=== PATIENT | female | born 1935 | race Caucasian/White ===

== ENCOUNTER 2018-04-13 16:11 | Emergency (ER) | payer OTHER ==
[~2018-04-13] VITALS: Ht 157.5 cm; Wt 54.9 kg
[~2018-04-13 16:11] MED LIST: ACET-2858 PO; ATI.5 PO; ATOR40TA PO; DONE10TA10 PO; DORZ10SO23 OP; LISI10TA11 PO; OMEP20TC12 PO; RIVA15TA1 PO; TIM.5OS OP
[2018-04-13 16:19] VITALS: BP 157/108
--- NOTE | 2018-04-13 16:25 | NUR ---
PT AMBULATED TO ER BED 02
--- NOTE | 2018-04-13 16:39 | NUR ---
82/F bib daughter with complaints of cough and congestion x1 week. Pt states she has had a productive cough x1 week with white, yellowish phlegm production. Pt also c/o feeling short of breath. O2 sat 98% on room air. Lungs clear bilaterally x5 lobes. Respirations even and unlabored. Chest rises and falls symmetrically. Pt has a defibrilator to left upper chest. Hx a.fib, breast ca (remission), HTN. Pt placed on gambling monitor, a.fib noted, pulse oximetry and blood pressure monitoring. VSS. Pt also reports feeling dizziness last night upon waking up during the night. Denies syncope. AOX4, clear speech. Family at bedside. All needs met at this time. Will continue to monitor.
--- NOTE | 2018-04-13 16:47 | NUR ---
X-Ray at bedside.
--- NOTE | 2018-04-13 17:26 | NUR ---
Patient being evaluated by physician at bedside.
--- NOTE | 2018-04-13 17:45 | NUR ---
Patient appears to be resting comfortably in bed. Vital Signs within normal limits. Respirations even and unlabored. Pt states "I'm ready to go."
[2018-04-13 18:34] VITALS: BP 162/99
--- NOTE | 2018-04-13 18:34 | NUR ---
Patient discharged with v/s stable. Written and verbal after care instructions given and explained. Patient alert, oriented and verbalized understanding of instructions. Ambulatory with steady gait. All questions addressed prior to discharge. ID band removed. Patient advised to follow up with PMD. Rx of Prednisone 20mg, and Zithromax Z-JOHNNY 250mg given. Patient educated on indication of medication including possible reaction and side effects. Opportunity to ask questions provided and answered.
== END 2018-04-13 18:34 | disposition home or self-care (01) ==
LOC: MED 16:11
DX: J42 Unspecified chronic bronchitis (principal); I48.91 Unspecified atrial fibrillation; I10 Essential (primary) hypertension; Z95.0 Presence of cardiac pacemaker; Z85.3 Personal history of malignant neoplasm of breast; Z79.899 Other long term (current) drug therapy
CPT/HCPCS: 71045; 93005; 99284

== ENCOUNTER 2018-06-12 11:48 | Inpatient (IN) | payer OTHER ==
[~2018-06-12] VITALS: Ht 152.4 cm; Wt 54.4 kg
--- NOTE | 2018-06-12 12:10 | NUR ---
ARRIVED ON THE UNIT IN A WHEELCHAIR, ACCOMPANIED BY DAUGHTER MIMI. PT IS ALERT AND ORIENTED. PT ABLE TO AMBULATE WITH ASSIST D/T GENERALIZED WEAKNESS. SKIN INTACT. NO IV ACCESS. DAUGHTER STATES, PT HAS ABD PAIN, NAUSEA AND VOMITING, LOSS OF APPETITE, HIGH BP. ROOM AIR. WILL CONTINUE TO ASSESS.
--- NOTE | 2018-06-12 12:20 | NUR ---
MRSA SCREENING DONE. FALL PROTOCOL IN PLACE. V/S WITHIN NORMAL LIMITS, EXCEPT BP STILL HIGH 171/76. PT IS RESTING COMFORTABLY. DAUGHTER AT BEDSIDE. WILL CONTINUE TO MONITOR PT.
[2018-06-12 12:59] VITALS: BP 171/76
[2018-06-12] MEDS ORDERED: LORazepam 0.5 MG TAB PO PRN (14:00)
[2018-06-12] MEDS ORDERED: MORPHINE SULFATE 2 MG/ML SYR IVP PRN (14:00)
[2018-06-12 14:56] LABS: BASOPHILS % (AUTO) 0.4 % (0.0-2.0); EOSINOPHILS % (AUTO) 0.1 % (0.0-4.0); HEMATOCRIT 42.6 % (36-48); LYMPHOCYTES # (AUTO) 1.3 K/uL (2.5-16.5); MEAN CORPUSCULAR HEMOGLOBIN 28 pg (27-31); MEAN CORPUSCULAR HGB CONC 33 g/dL (33-37); MEAN CORPUSCULAR VOLUME 83.7 fL (80-94); MONOCYTES # (AUTO) 0.5 K/uL (0.8-1.0); MONOCYTES % (AUTO) 7.3 % (1.7-9.3); NEUTROPHILS # (AUTO) 5.1 K/uL (1.8-7.7); NEUTROPHILS % (AUTO) 73.2 % (42.2-75.2); PLATELET COUNT (AUTO) 210 K/uL (140-450); RED BLOOD CELL COUNT(AUTO) 5.09 MIL/uL (4.20-5.40); RED CELL DISTRIBUTION WIDTH 15.5 % (11.6-13.7)
[2018-06-12] MEDS ORDERED: ONDANSETRON 4 MG/2 ML VIAL IVP PRN (15:00)
--- NOTE | 2018-06-12 15:03 | NUR ---
DR. Tosha ADAMS WAS HERE TO CONSULT ON PT. ORDERED EGD. COURTNEY, OR NURSE IS HERE. COURTNEY GOT CONSENT FOR PROCEDURE. STARTED AN IV ACCESS ON L HAND 22G. PT WHEELED OUT TO THE O/R.
[2018-06-12] MEDS ORDERED: MIDAZOLAM 2 MG/2 ML VIAL ONE (15:20)
[2018-06-12] MEDS ORDERED: fentaNYL 0.05 MG/ML VIAL ONE (15:20)
[2018-06-12] MEDS ORDERED: diphenhydrAMINE 50 MG/ML VIAL ONE (15:21)
[2018-06-12] MEDS: MIDAZOLAM 2 MG/2 ML VIAL IVP ONE ×2 (15:29→16:08)
[2018-06-12] MEDS: fentaNYL 0.05 MG/ML VIAL IVP ONE ×2 (15:30→16:08)
[2018-06-12] MEDS: LACTULOSE 20 GM/30 ML UDC PO SCH ×2 (15:36→17:35)
[2018-06-12 15:41] LABS: ALBUMIN 3.7 g/dL (3.4-5.0); AMYLASE 38 U/L (25-115); ANION GAP 12.8 (8-16); ASPARTATE AMINOTRANSFERASE 19 U/L (15-37); CARBON DIOXIDE 28.6 mmol/L (21-32); CHLORIDE 104 mmol/L (98-107); CREATININE 1.1 mg/dL (0.6-1.3); GLUCOSE 105 mg/dL (74-106); LIPASE 73 U/L (73-393); POTASSIUM 3.4 mmol/L (3.5-5.1); SODIUM SERUM 142 mmol/L (136-145); TOTAL BILIRUBIN 0.9 mg/dL (0.0-1.0); UREA NITROGEN, BLOOD 17 mg/dL (7-18)
--- NOTE | 2018-06-12 15:55 | NUR ---
PT RETURNED FROM THE EGD. COURTNEY GAVE REPORT. PT'S DX: HIATAL HERNIA, GERD, GASTRITIS. PT TOLERATED WELL. DR ADAMS PUT IN ORDERS FOR COLONOSCOPY FOR TOMORROW. PT WILL BE NPO AFTER MIDNIGHT. V/S WITHIN NORMAL LIMITS. WILL START BOWEL PREP.
[2018-06-12 16:00] VITALS: BP 139/76
[2018-06-12] MEDS ORDERED: MAGNESIUM CITRATE 300 ML BTL PO SCH (16:00)
[2018-06-12] MEDS ORDERED: LACTULOSE 20 GM/30 ML UDC ONE (16:10)
--- NOTE | 2018-06-12 16:33 | NUR ---
U/S IS HERE TO DO THE ABD COMPLETE.
[2018-06-12] MEDS: POTASSIUM CHL 20 MEQ/NACL 0.9% 1,000 ML IV SCH (17:35)
[2018-06-12] MEDS: SENNA 8.6 MG TAB PO SCH (17:36)
[2018-06-12] MEDS: METOCLOPRAMIDE 10 MG/2 ML INJ VIAL IVP SCH (17:36)
[2018-06-12] MEDS: POLYETHYLENE GLYCOL 17 GM/PKT PO SCH ×2 (17:36→21:06)
--- NOTE | 2018-06-12 17:40 | NUR ---
STARTED BOWEL PREP. PT ON THE BEDSIDE COMMODE. DAUGHTER AT BEDSIDE.
--- NOTE | 2018-06-12 19:20 | NUR ---
ENDORSED PT TO THE ORACLE WEBCENTER CONSULTANT NURSE AT BEDSIDE FOR CONTINUITY OF CARE. PT IS IN STABLE CONDITION.
[2018-06-12 20:00] VITALS: BP 154/76
--- NOTE | 2018-06-12 20:00 | NUR ---
SEEN PT APPEARS ASLEEP BUT AROUSABLE. DAUGHTER AT BEDSIDE. INITIAL ASSESSMENT DONE. VITAL SIGNS CHECKED. PT DENIES ANY PAIN OR DISCOMFORT. SAFETY ENSURED. DAUGHTER WAS ASKING FOR LORAZEPAM. WILL MEDICATE ORDERED.
--- NOTE | 2018-06-12 20:40 | NUR ---
SEEN PT ON THE BEDSIDE COMMODE. DAUGHTER HELPING PT.
[2018-06-12] MEDS ORDERED: TIMOLOL OP 0.5% 5 ML BTL OP SCH (21:00)
[2018-06-12] MEDS: ATORVASTATIN 20 MG TAB PO SCH (21:04)
[2018-06-12] MEDS: LORazepam 0.5 MG TAB PO PRN (21:05)
[2018-06-12] MEDS: TIMOLOL OP 0.5% 5 ML BTL BOTH EYES SCH (21:06)
--- NOTE | 2018-06-12 21:06 | NUR ---
SEEN PT BACK IN BED. MEDICATIONS GIVEN ORDERED. TEACHINGS PROVIDED. SAFETY ENSURED. WILL CLOSELY MONITOR FOR SAFETY. DAUGHTER LEFT.
[2018-06-13] MEDS: METOCLOPRAMIDE 10 MG/2 ML INJ VIAL IVP SCH ×4 (01:10→17:35)
--- NOTE | 2018-06-13 04:10 | NUR ---
SEEN PT ASLEEP BUT AROUSABLE. VITAL SIGNS CHECKED. PT DENIES ANY DISCOMFORT. PT HAD BM ON THE BED. PERICARE RENDERED. PT KEPT COMFORTABLE. SEQUENTIAL DEVICE APPLIED PER PROTOCOL.
[2018-06-13 04:15] VITALS: BP 160/83
[2018-06-13] MEDS: POTASSIUM CHL 20 MEQ/NACL 0.9% 1,000 ML IV SCH ×2 (06:00→18:35)
--- NOTE | 2018-06-13 07:15 | NUR ---
RECEIVED BEDSIDE REPORT FROM IT COMMUNICATIONS MANAGER NURSE. PATIENT IS SLEEPING BUT EASILY AROUSABLE. SHE IS ABLE TO AMBULATE W ASSIST. BEDSIDE COMMODE AT BEDSIDE. SKIN IS INTACT. IV ON L HAND 22G INFUSING K20MEQ/NS AT 75ML/HR. IV IS CLEAN, DRY AND INTACT. BM IS CLEAR, SHE HAD MULTIPLE BMS PER IT COMMUNICATIONS MANAGER. BED IN LOW POSITION. CALL LIGHT WITHIN REACH. FALL RISK PROTOCOL IN PLACE. NO B/P CUFF ON R SIDE IN PLACE. WILL CONTINUE TO MONITOR
[2018-06-13 08:00] VITALS: BP 182/91
[2018-06-13] MEDS: SENNA 8.6 MG TAB PO SCH ×3 (09:00→17:00)
[2018-06-13] MEDS ORDERED: CLINICAL MONITORING MC SCH (09:00)
[2018-06-13] MEDS: POLYETHYLENE GLYCOL 17 GM/PKT PO SCH ×4 (09:00→20:32)
[2018-06-13] MEDS ORDERED: RIVAROXABAN 15 MG TAB PO SCH (09:00)
[2018-06-13] MEDS: DONEPEZIL 10 MG TAB PO SCH (09:33)
[2018-06-13] MEDS: PANTOPRAZOLE 40 MG INJ VIAL IVP SCH (09:33)
[2018-06-13] MEDS: LISINOPRIL 10 MG TAB PO SCH (09:33)
--- NOTE | 2018-06-13 09:43 | NUR ---
ADMINISTERED MEDS. PATIENT TOLERATED WELL. PATIENT REFUSED SENNA AND MIRALAX. SHE SAID HER STOOL IS CLEAR AND SHES HAD TOO MUCH. BED IN LOW POSITION CALL LIGHT WITHIN REACH. TOLD PATIENT ITS IMPORTANT TO CLEAR BOWEL FOR COLONOSCOPY
--- NOTE | 2018-06-13 10:42 | NUR ---
PATIENT HAS BEEN SCREENED AND CATEGORIZED HIGH NUTRITION RISK. PATIENT WILL BE SEEN WITHIN 1-2 DAYS OF ADMISSION. 06/13/18 06/14/[address]
[2018-06-13 12:00] VITALS: BP 199/83
--- NOTE | 2018-06-13 12:00 | NUR ---
B/P IS UP. DR JAMES ORDERED B/P MED FOR PATIENT. WILL ADMINISTER MEDS.
[2018-06-13] MEDS: cloNIDine 0.1 MG TAB PO SCH ×2 (12:21→17:00)
--- NOTE | 2018-06-13 12:30 | NUR ---
DR ADAMS TO SEE THE PATIENT. PATIENT IN NO SIGNS OF DISTRESS. WILL CONTINUE TO MONITOR THE PATIENT.
--- NOTE | 2018-06-13 13:07 | NUR ---
FAMILY AT BEDSIDE. PATIENT IN NO DISTRESS AT THIS TIME. WILL CONTINUE TO MONITOR THE PATIENT. BED IN LOW POSITION. CALL LIGHT WITHIN REACH
--- NOTE | 2018-06-13 15:00 | NUR ---
PATIENT IS SLEEPING. NO SIGNS OF DISTRESS ON ROOM AIR. BED IN LOW POSITION. CALL LIGHT WITHIN REACH. WILL CONTINUE TO MONITOR THE PATIENT
[2018-06-13 16:00] VITALS: BP 149/66
--- NOTE | 2018-06-13 17:00 | NUR ---
PATIENTS COLONOSCOPY IS RESCHEDULED FOR TOMORROW MORNING. OR TEMP IS TOO HIGH TO DO ANY PROCEDURES. CLEAR LIQ DIET GIVEN, NPO AFTER MIDNIGHT. PATIENT AND FAMILY VERBALIZED UNDERSTANDING.
--- NOTE | 2018-06-13 18:49 | NUR ---
ADMINISTERED NEW IVF. PATIENT TOLERATING WELL. IV IS CLEAN, DRY AND INTACT. WILL CONTINUE TO MONITOR THE PATIENT,
--- NOTE | 2018-06-13 19:20 | NUR ---
GAVE BEDSIDE REPORT TO BLAST FURNACE SUPERVISOR NURSE. PATIENT IS ENDORSED IN STABLE CONDITION.
--- NOTE | 2018-06-13 19:21 | NUR ---
RECEIVED BEDSIDE REPORT FROM DISTRICT DIRECTOR NURSE ANALIA-RN. PT IS RESTING IN BED WITH DAUGHTER AT BEDSIDE. AOX4, ON ROOM AIR, IV ON L HAND 22G INFUSING K20MEQ/NS AT 75ML/HR. IV IS CLEAN, DRY AND INTACT. SHE IS ABLE TO AMBULATE W ASSIST. BEDSIDE COMMODE AT BEDSIDE. SKIN IS INTACT. BM IS CLEAR. DISCUSSED PLAN OF CARE. PT AND PT DAUGHTER VERBALIZED UNDERSTANDING. NO S/S OF RESPIRATORY DISTRESS OR DISCOMFORT NOTED AT THIS TIME. BED IN LOWEST POSITION, BED BREAKS ON, BOTH SIDE RAILS UP, BED ALARM ON. BEDSIDE TABLE AND CALL LIGHT ARE WITHIN REACH. FALL RISK PROTOCOL IN PLACE. NO B/P CUFF ON RIGHT SIDE IN PLACE. WILL CONTINUE TO MONITOR.
[2018-06-13 20:00] VITALS: BP 141/78
--- NOTE | 2018-06-13 20:00 | NUR ---
VITAL SIGNS TAKEN AND TOLERATED WELL. BP ELEVATED WHILE ON BEDSIDE COMMODE 175/85, WILL RE-TAKE FOR ACCURACY. NO S/S OF RESPIRATORY DISTRESS OR DISCOMFORT NOTED AT THIS TIME. WILL CONTINUE TO MONITOR.
[2018-06-13] MEDS: LORazepam 0.5 MG TAB PO PRN (20:27)
[2018-06-13] MEDS: TIMOLOL OP 0.5% 5 ML BTL BOTH EYES SCH (20:31)
[2018-06-13] MEDS: ATORVASTATIN 20 MG TAB PO SCH (20:31)
--- NOTE | 2018-06-13 20:35 | NUR ---
SCHEDULED MEDICATION GIVEN BY SARAH. PT REFUSED MIRALAX STATING SHE IS ALREADY HAVING CLEAR LIQUID STOOLS. PT DAUGHTER DARIEL REQUESTED PT TO HAVE ATIVAN FOR ANXIETY. ATIVAN ALSO GIVEN BY SARAH. PT TOLERATED WELL. BP TAKEN AGAIN WHILE PT RESTING IN BED, 141/78. NO S/S OF RESPIRATORY DISTRESS OR DISCOMFORT AT THIS TIME. WILL CONTINUE TO MONITOR.
--- NOTE | 2018-06-13 22:00 | NUR ---
PT SLEEPING IN BED. NO S/S OF RESPIRATORY DISTRESS OR DISCOMFORT NOTED AT THIS TIME. WILL CONTINUE TO MONITOR.
[2018-06-14] VITALS: BP 159/75
--- NOTE | 2018-06-14 | NUR ---
VITAL SIGNS TAKEN AND TOLERATED WELL. BP ELEVATED 178/85-WILL REASSESS. NO S/S OF RESPIRATORY DISTRESS OR DISCOMFORT. WILL CONTINUE TO MONITOR.
--- NOTE | 2018-06-14 00:30 | NUR ---
BP 159/75. NO S/S OF RESPIRATORY DISTRESS OR DISCOMFORT. WILL CONTINUE TO MONITOR.
[2018-06-14] MEDS: METOCLOPRAMIDE 10 MG/2 ML INJ VIAL IVP SCH ×2 (00:34→06:32)
--- NOTE | 2018-06-14 00:35 | NUR ---
SCHEDULED MEDICATION REGLAN GIVEN AND TOLERATED WELL. NO S/S OF RESPIRATORY DISTRESS OR DISCOMFORT NOTED. WILL CONTINUE TO MONITOR.
--- NOTE | 2018-06-14 02:00 | NUR ---
PT CONTINUES TO SLEEP. NO S/S OF RESPIRATORY DISTRESS OR DISCOMFORT NOTED AT THIS TIME. WILL CONTINUE TO MONITOR.
--- NOTE | 2018-06-14 04:00 | NUR ---
PT CONTINUES TO SLEEP. NO S/S OF RESPIRATORY DISTRESS OR DISCOMFORT NOTED AT THIS TIME. WILL CONTINUE TO MONITOR.
[2018-06-14] MEDS: POTASSIUM CHL 20 MEQ/NACL 0.9% 1,000 ML IV SCH (05:25)
--- NOTE | 2018-06-14 06:00 | NUR ---
PT CONTINUES TO SLEEP. NO S/S OF RESPIRATORY DISTRESS OR DISCOMFORT NOTED AT THIS TIME. WILL CONTINUE TO MONITOR.
--- NOTE | 2018-06-14 06:35 | NUR ---
SCHEDULED MEDICATION REGLAN GIVEN AND TOLERATED WELL. NO S/S OF RESPIRATORY DISTRESS OR DISCOMFORT NOTED AT THIS TIME. WILL CONTINUE TO MONITOR.
--- NOTE | 2018-06-14 07:04 | NUR ---
SCHEDULED MEDICATION KCL ENDORSED TO DAY SHIFT NURSE BECAUSE OTHER BAG IS STILL INFUSING. ENDORSED PT CARE TO DAY SHIFT NURSE KY-RN FOR CONTINUITY OF CARE.
--- NOTE | 2018-06-14 07:05 | NUR ---
RECEIVED REPORT FROM THORACIC SURGEON NURSE AT BEDSIDE FOR CONTINUITY OF CARE. PT IS RESTING IN BED, AROUSABLE. AOX4, ON ROOM AIR, IV ON L HAND 22G INFUSING KCL 20MEQ NS AT 75ML/HR. IV IS CLEAN, DRY AND INTACT. PATIENT ABLE TO AMBULATE W ASSIST. USES BEDSIDE COMMODE AT BEDSIDE. SKIN IS INTACT. BM IS CLEAR PER THORACIC SURGEON NURSE AND PATIENT. NO S/S OF RESPIRATORY DISTRESS OR DISCOMFORT NOTED AT THIS TIME. NO B/P CUFF ON RIGHT SIDE D/T MASTECTOMY. UPDATED BOARD. SAFETY PRECAUTION IN PLACE, BED IN LOWEST POSITION, BOTH SIDE RAILS UP. BEDSIDE TABLE AND CALL LIGHT ARE WITHIN REACH. WILL CONTINUE TO MONITOR PATIENT.
[2018-06-14 08:00] VITALS: BP 197/84
[2018-06-14] MEDS: POLYETHYLENE GLYCOL 17 GM/PKT PO SCH (08:14)
[2018-06-14] MEDS: DONEPEZIL 10 MG TAB PO SCH (08:16)
[2018-06-14] MEDS: LISINOPRIL 10 MG TAB PO SCH (08:16)
--- NOTE | 2018-06-14 08:16 | NUR ---
ORDERED MEDICATIONS GIVEN. BP 197/84 HR 65. WILL REASSESS. PATIENT TOLERATED IT WELL. PATIENT STILL NPO FOR COLONOSCOPY. PATIENT AWARE. PATIENT REFUSED MIRALAX AND SENNAKOT BECAUSE PATIENT STATED LAST BM WERE CLEAR AND LIQUID LAST NIGHT. RN VERBALIZED UNDERSTANDING AND EDUCATED PATIENT FOR NEED OF MEDICATION FOR BOWEL PREP, PATIENT STILL REFUSED STATING SHE HAD "NOTHING MORE" FOR IT TO PUSH OUT. SAFETY PRECAUTION IN PLACE, CALL LIGHT WITHIN REACH, WILL CONTINUE TO MONITOR PATIENT.
[2018-06-14] MEDS: PANTOPRAZOLE 40 MG INJ VIAL IVP SCH (08:17)
[2018-06-14] MEDS: cloNIDine 0.1 MG TAB PO SCH ×2 (08:17→20:32)
[2018-06-14 08:25] LABS: ANION GAP 11.4 (8-16); CARBON DIOXIDE 24.2 mmol/L (21-32); CHLORIDE 111 mmol/L (98-107); CREATININE 0.7 mg/dL (0.6-1.3); GLUCOSE 81 mg/dL (74-106); POTASSIUM 3.6 mmol/L (3.5-5.1); SODIUM SERUM 143 mmol/L (136-145); UREA NITROGEN, BLOOD 12 mg/dL (7-18)
[2018-06-14] MEDS: SENNA 8.6 MG TAB PO SCH (08:26)
--- NOTE | 2018-06-14 09:17 | NUR ---
DR. JAMES IN TO SEE THE PATIENT. WILL WAIT FOR HER ORDERS. FAMILY MEMBERS AT BEDSIDE. BP 185/92 HR 68. SURGERY CALLED. STATED THAT PATIENT WILL BE GOING TO COLONOSCOPY PROCEDURE WITH DR. BRYAN LATHAM. RN INFORMED PATIENT, DAUGHTER MIMI, AND GRANDCHILDREN AT BEDSIDE. THEY ARE AWARE. WILL CONTINUE TO MONITOR PATIENT.
[2018-06-14] MEDS ORDERED: MIDAZOLAM 2 MG/2 ML VIAL ONE ×2 (09:20)
[2018-06-14] MEDS ORDERED: fentaNYL 0.05 MG/ML VIAL ONE (09:20)
--- NOTE | 2018-06-14 09:30 | NUR ---
PATIENT WHEELED OFF FLOOR BY TWO OR NURSES. PATIENT IN STABLE CONDITION.
--- NOTE | 2018-06-14 10:16 | NUR ---
PATIENT TRANSFERRED BACK TO FLOOR VIA BED BY 2 OR NURSES. PATIENT IN STABLE CONDITION. BP: 156/76 HR 64 RR 18 T 98.3 O2 97%. DAUGHTER MIMI AT BEDSIDE. WILL CONTINUE TO MONITOR PATIENT.
[2018-06-14] MEDS ORDERED: FUROSEMIDE 20 MG/2 ML VIAL IVP SCH (10:30)
--- NOTE | 2018-06-14 11:30 | NUR ---
ORDERED MEDICATION GIVEN. PATIENT TOLERATED IT WELL. DAUGHTER AYE AND GRANDDAUGHTERS AT BEDSIDE. WILL CONTINUE TO MONITOR PATIENT.
[2018-06-14] MEDS ORDERED: fentaNYL 0.05 MG/ML VIAL IVP ONE (12:20)
[2018-06-14] MEDS ORDERED: MIDAZOLAM 2 MG/2 ML VIAL IVP ONE (12:20)
--- NOTE | 2018-06-14 13:00 | NUR ---
BP 175/88 HR 67. PATIENT RESTING IN BED, NO SIGNS OF DISTRESS OR SOB NOTED ON ROOM AIR. DAUGHTER AYE AT BEDSIDE. PATIENT ON REGULAR DIET FOR LUNCH. PATIENT DID NOT HAVE ANY APPETITE. AYE REQUESTED FOR BROTH AND CRACKERS. BROTH AND CRACKERS GIVEN. PATIENT TOLERATED THEM WELL. WILL CONTINUE TO MONITOR PATIENT.
--- NOTE | 2018-06-14 13:50 | NUR ---
BP 167/80 HR 65. PATIENT RESTING IN BED, DAUGHTER AYE AT BEDSIDE. WILL CONTINUE TO MONITOR PATIENT.
[2018-06-14 16:00] VITALS: BP 130/71
--- NOTE | 2018-06-14 16:00 | NUR ---
PATIENT RESTING IN BED, DAUGHTER AYE AT BEDSIDE. BP 130/71 HR 65. PATIENT DENIES PAIN, NO DISTRESS OR SOB NOTED ON ROOM AIR. WILL CONTINUE TO MONITOR PATIENT.
--- NOTE | 2018-06-14 16:13 | NUR ---
06/14/18 RD INITIAL ASSESSMENT COMPLETED PLEASE REFER TO NUTRITION ASSESSMENT UNDER CARE ACTIVITY FOR ESTIMATED NUTRITIONAL NEEDS. 1. RECOMMEND CARDIAC DIET TOLERATED 2. RECOMMEND ENSURE ENLIVE QD 3. RD TO FOLLOW-UP 3-5 DAYS, MODERATE RISK ALYSSA DICKSON RD
--- NOTE | 2018-06-14 17:05 | NUR ---
CALLED DIETARY PER PATIENT'S DAUGHTER AYE'S REQUEST FOR SODA. STAKING TECHNICIAN GABRIEL SAID IT WILL BE ON DINNER TRAY. RN VERBALIZED UNDERSTANDING.
--- NOTE | 2018-06-14 17:45 | NUR ---
PATIENT SITTING UP IN BED EATING DINNER WITH DAUGHTER AYE. PATIENT RELAX AND SMILING. NO SIGNS OF DISTRESS OR SOB NOTED ON ROOM AIR. WILL CONTINUE TO MONITOR PATIENT.
--- NOTE | 2018-06-14 19:09 | NUR ---
REPORT GIVEN TO RETAIL FIELD REPRESENTATIVE NURSE AT BEDSIDE FOR CONTINUITY OF CARE. PATIENT IN STABLE CONDITION.
--- NOTE | 2018-06-14 19:10 | NUR ---
RECEIVED PT IN STABLE CONDITION FROM AM NURSE. ASLEEP BUT AROUSE EASILY WHEN NAME CALLED. PT IS MED SURG. WITH NO C/O ANY DISCOMFORT NOR PAIN NOTED. FAMILY MEMBERS AT BEDSIDE. HAS HL ON THE LT HAND #22, CLEAR AND PATENT. PLAN OF CARE DISCUSSED AND VERBALIZED UNDERSTANDING. BED ON LOW POSITION, SIDE RAILS UP X2. CALL LIGHT PLACED WITHIN EASY REACH. WILL CONTINUE TO MONITOR.
[2018-06-14 19:45] VITALS: BP 120/75
[2018-06-14] MEDS ORDERED: LORazepam 0.5 MG TAB PO PRN (20:10)
--- NOTE | 2018-06-14 20:10 | NUR ---
PT/FAMILY REQUESTING TO HAVE PT SOME ATIVAN TONIGHT. PAGED DR. JAMES FOR THE ATIVAN WAS ALREADY DC'D. CALLED BACK WITH ORDERS. ALSO PT EVAL AND TREATMENT FOR TOMORROW. / ERIKA SAID PT IS POSSIBLE DC HOME JOSEFA. WILL TELL PT /FAMILY.
[2018-06-14 20:29] VITALS: BP 145/76
[2018-06-14] MEDS: TIMOLOL OP 0.5% 5 ML BTL BOTH EYES SCH (20:31)
[2018-06-14] MEDS: ATORVASTATIN 20 MG TAB PO SCH (20:32)
[2018-06-14] MEDS ORDERED: cloNIDine 0.1 MG TAB PO SCH (21:00)
--- NOTE | 2018-06-14 22:02 | NUR ---
LATEST BP 1369/76,HR-72, O2 SAT ON RA 97%. NO C/O ANY DISCOMFORT NOR PAIN NOTED. Addendum: 06/14/18 at 2215 by Julia Guthrie RN CORRECTION ON ABOVE NOTES. LATEST BP 139/76.
[2018-06-14 23:55] VITALS: BP 162/79
--- NOTE | 2018-06-15 00:30 | NUR ---
PT AWAKE. SHE SAID SHE WOKE UP AND TRYING TO LOOK FOR HER EYEGLASSES. SHE IS WEARING IT AT THIS TIME. NO C/O ANY DISCOMFORT/PAIN NOTED. REPOSITIONED FOR COMFORT.
--- NOTE | 2018-06-15 03:10 | NUR ---
MADE ROUNDS. PT IS ASLEEP. NO S/S OF ANY DISCOMFORT/DISTRESS NOTED.
--- NOTE | 2018-06-15 05:00 | NUR ---
LATEST BP TAKEN 149/82,HR-65. PT ABLE TO SLEEP WELL DURING THE NIGHT.
--- NOTE | 2018-06-15 05:29 | NUR ---
URINE COLLECTED FOR URINALYSIS. WILL SEND TO LAB.
--- NOTE | 2018-06-15 07:05 | NUR ---
ENDORSED PT IN STABLE CONDITION TO AM NURSE.
--- NOTE | 2018-06-15 07:06 | NUR ---
RECEIVED REPORT FROM SPIRITUAL COUNSELOR RN FOR CONTINUITY OF CARE. PT IS A/OX4, RESTING IN BED. RESPIRATIONS EVEN AND UNLABORED ON ROOM AIR. PT SKIN IS INTACT. PT HAS 22 IV TO LEFT HAND, ASYMPTOMATIC, INTACT AND PATENT, SALINE LOCKED. PT STABLE, NO SIGNS OF DISTRESS NOTED AT THIS TIME. UPDATED BOARD. SAFETY PRECAUTION IN PLACE, BED IN LOWEST POSITION, CALL LIGHT WITHIN REACH, WILL CONTINUE TO MONITOR PATIENT.
[2018-06-15 07:56] LABS: FREE T4 (FREE THYROXINE) 1.7 ng/dL (0.76-1.46); THYROID STIMULATING HORMONE 2.75 uIU/mL (0.34-3.74); URIC ACID 2.7 mg/dL (2.6-7.2)
[2018-06-15 08:00] VITALS: BP 146/83
--- NOTE | 2018-06-15 08:42 | NUR ---
DR JAMES CALLED. UPDATED HER ABOUT PATIENT'S CONDITION AND STATUS. PATIENT'S BLOOD PRESSURE IS BETTER CONTROLLED. PER FAMILY'S REQUEST. ORDER FOR PT EVAL WILL BE PUT IN. DR. JAMES WILL WAIT FOR PT EVALUATION BEFORE DECIDING TO DISCHARGE PATIENT. RN VERBALIZED UNDERSTANDING.
[2018-06-15] MEDS ORDERED: POLYETHYLENE GLYCOL 17 GM/PKT PO SCH (09:00)
[2018-06-15] MEDS ORDERED: amLODIPine 5 MG TAB PO SCH (09:00)
[2018-06-15] MEDS ORDERED: PANTOPRAZOLE 40 MG TABEC PO SCH (09:00)
[2018-06-15 09:15] LABS: BILIRUBIN,URINE SMALL (NEGATIVE); BLOOD, URINE NEGATIVE (NEGATIVE); LEUKOCYTE ESTERASE ,URINE TRACE (NEGATIVE); NITRITE, URINE NEGATIVE (NEGATIVE); UGLUCOSE NEGATIVE (NEGATIVE)
[2018-06-15 09:30] LABS: APPEARANCE,URINE HAZY (CLEAR); COLOR,URINE YELLOW (YELLOW)
[2018-06-15 09:31] LABS: RBC,URINE 0-5 (RARE) /HPF (0-5)
[2018-06-15] MEDS: DONEPEZIL 10 MG TAB PO SCH (09:44)
[2018-06-15] MEDS: LISINOPRIL 10 MG TAB PO SCH (09:44)
[2018-06-15] MEDS: cloNIDine 0.1 MG TAB PO SCH (09:45)
--- NOTE | 2018-06-15 09:45 | NUR ---
ORDERED MEDICATIONS GIVEN. PATIENT TOLERATED THEM WELL. NO SIGNS OF DISTRESS OR SOB NOTED ON ROOM AIR. DAUGHTER AYE AT BEDSIDE. INFORMED PATIENT AND AYE THAT PHYSICAL THERAPY WILL BE IN LATER TO ASSESS PATIENT. THEY VERBALIZED UNDERSTANDING.
--- NOTE | 2018-06-15 11:51 | NUR ---
DR. BOWMAN IN TO SEE THE PATIENT. WILL CONTINUE TO MONITOR PATIENT.
--- NOTE | 2018-06-15 14:20 | NUR ---
CALLED PHYSICAL THERAPY TO SEE WHEN THEY WILL BE IN TO ASSESS THE PATIENT. THEY SAID 30-40 MINUTES. PASSED THIS MESSAGE TO PATIENT AND AYE. WILL FOLLOW UP.
--- NOTE | 2018-06-15 14:40 | NUR ---
DR JAMES IN TO EVALUATED PATIENT. UPDATED HER ON PATIENT'S CONDITION AND STATUS. NEW DISCHARGE ORDER IN FOR PATIENT TO BE DISCHARGED WITH HOME HEALTH. CALLED LOGGING ENGINEER, SIVAN IS ON HER CASE. WILL FOLLOW UP AND UPDATE FAMILY MEMBERS.
[2018-06-15] MEDS ORDERED: AMLO5TAB PO (14:53)
[2018-06-15] MEDS ORDERED: CLON0.1T42 PO (14:53)
--- NOTE | 2018-06-15 15:45 | NUR ---
PHYSICAL THERAPY IN TO ASSESS THE PATIENT. WILL AWAIT FOR THEIR EVALUATION.
--- NOTE | 2018-06-15 15:57 | NUR ---
Erp Manager Notes: I Faxed Debbei Rodgers from [facility] at Patient's Clinical Information and MD order for Physical Therapy. Debbie from [facility] at call me back to confirm that she has received patient's Clinical information and to confirm that she will assist patient with getting a wheelchair. I thanked debbie for information and confirmation and I ended the call.
[2018-06-15 16:00] VITALS: BP 144/85
--- NOTE | 2018-06-15 16:55 | NUR ---
CALLED LEAD MECHANICAL ENGINEER TO SPEAK TO SIVAN FOR FOLLOW UP ABOUT PATIENT'S DISCHARGE PLANNING. SHE STATED THAT HOME HEALTH HAS BEEN CONTACTED AND SHE IS WAITING FOR THEIR CALL. RN VERBALIZED UNDERSTANDING.
--- NOTE | 2018-06-15 17:07 | NUR ---
NORMAL CALLED, HOME HEALTH FOR PATIENT IN PLACE, THEY WILL CONTACT PATIENT TOMORROW AT HOME AFTER DISCHARGE. PASSED THIS MESSAGE TO PATIENT AND AYE. PATIENT NOW CAN BE DISCHARGED HOME.
--- NOTE | 2018-06-15 18:36 | NUR ---
DISCHARGE INSTRUCTIONS AND EDUCATION GIVEN TO PATIENT. IV REMOVED, IV CATHETER INTACT, MINIMAL BLOOD NOTED. PATIENT STILL EATING HER DINNER. ONCE FINISHED, SHE WILL CHANGE WITH ASSIST FROM DAUGHTER AYE AND BE READY TO BE DISCHARGE.
--- NOTE | 2018-06-15 19:00 | NUR ---
PATIENT WHEELED OFF FLOOR ACCOMPANIED BY DAUGHTER AYE AND RN. PATIENT IN STABLE CONDITION. PATIENT TOOK ALL HER BELONGINGS WITH HER.
[2018-06-15] MEDS ORDERED: LISINOPRIL 10 MG TAB PO SCH (21:00)
== END 2018-06-15 19:00 | disposition home or self-care (01) | DRG 392 ==
LOC: MTU 11:48
PROVIDERS: ADMIT Internal Medicine Geriatric Medicine; ATTEND Internal Medicine Geriatric Medicine
PROC: 0DB68ZX Excision of Stomach, Via Natural or Artificial Opening Endoscopic, Diagnostic (ICD-10-PCS; principal; 2018-06-12 14:45)
PROC: 0DJD8ZZ Inspection of Lower Intestinal Tract, Via Natural or Artificial Opening Endoscopic (ICD-10-PCS; 2018-06-14)
DX: K44.9 Diaphragmatic hernia without obstruction or gangrene (principal); F32.2 Major depressive disorder, single episode, severe without psychotic features; I50.42 Chronic combined systolic (congestive) and diastolic (congestive) heart failure; K22.2 Esophageal obstruction; K21.0 Gastro-esophageal reflux disease with esophagitis; K29.70 Gastritis, unspecified, without bleeding; E78.5 Hyperlipidemia, unspecified; F03.90 Unspecified dementia, unspecified severity, without behavioral disturbance, psychotic disturbance, mood disturbance, and anxiety; I11.0 Hypertensive heart disease with heart failure; I25.10 Atherosclerotic heart disease of native coronary artery without angina pectoris; I48.0 Paroxysmal atrial fibrillation; I48.2 Chronic atrial fibrillation; M81.0 Age-related osteoporosis without current pathological fracture; Z95.0 Presence of cardiac pacemaker; Z85.3 Personal history of malignant neoplasm of breast; Z79.01 Long term (current) use of anticoagulants; Z90.11 Acquired absence of right breast and nipple; Z90.49 Acquired absence of other specified parts of digestive tract
CPT/HCPCS: 36415; 76700; 80048; 80053; 81001; 81002; 82150; 83690; 83735; 83880; 84439; 84443; 84484; 84550; 85025; 85610; 85730; 86677; 87081; 87086; 93005; 97110; 97535; C9113; J1200; J1940; J2250; J2765; J3010; J7030; Q0092

== ENCOUNTER 2018-09-15 13:33 | Inpatient (IN) | payer OTHER ==
[~2018-09-15] VITALS: Ht 154.9 cm; Wt 53.1 kg
[~2018-09-15 13:33] MED LIST changes: -ACET-2858 PO; +AMLO5TAB PO; +CLON0.1T42 PO; -DONE10TA10 PO
[2018-09-15 13:35] VITALS: BP 154/83
[2018-09-15] MEDS ORDERED: NACL 0.9% 1,000 ML IV SCH (14:34)
[2018-09-15] MEDS ORDERED: ONDANSETRON 4 MG/2 ML VIAL IVP ONE (14:35)
[2018-09-15] MEDS ORDERED: MECLIZINE 25 MG TAB PO ONE (14:35)
[2018-09-15 15:06] LABS: BASOPHILS % (AUTO) 0.6 % (0.0-2.0); EOSINOPHILS # (AUTO) 0.1 K/uL (0-0.4); EOSINOPHILS % (AUTO) 1.3 % (0.0-4.0); HEMOGLOBIN 12.4 g/dL (12.0-16.0); LYMPHOCYTES # (AUTO) 1.6 K/uL (2.5-16.5); LYMPHOCYTES % (AUTO) 29.1 % (20.5-51.1); MEAN CORPUSCULAR HEMOGLOBIN 28 pg (27-31); MEAN CORPUSCULAR HGB CONC 33 g/dL (33-37); MEAN CORPUSCULAR VOLUME 86.4 fL (80-94); MONOCYTES # (AUTO) 0.6 K/uL (0.8-1.0); MONOCYTES % (AUTO) 10.7 % (1.7-9.3); NEUTROPHILS # (AUTO) 3.1 K/uL (1.8-7.7); NEUTROPHILS % (AUTO) 58.3 % (42.2-75.2); PLATELET COUNT (AUTO) 184 K/uL (140-450); RED CELL DISTRIBUTION WIDTH 15.8 % (11.6-13.7); WHITE BLOOD COUNT (AUTO) 5.4 K/uL (4.8-10.8)
[2018-09-15] MEDS ORDERED: HYDR-5092 PO (15:16)
[2018-09-15] MEDS ORDERED: TRAV2.5S OP (15:16)
[2018-09-15] MEDS ORDERED: ONDANSETRON 4 MG/2 ML VIAL IVP PRN (15:30)
[2018-09-15] MEDS ORDERED: HYDROcodone/APAP 7.5/325 MG 1 TAB PO PRN (15:30)
[2018-09-15] MEDS ORDERED: ACETAMINOPHEN 325 MG TAB PO PRN (15:30)
[2018-09-15 15:36] LABS: ANION GAP 10.9 (8-16); CARBON DIOXIDE 27.7 mmol/L (21-32); CHLORIDE 108 mmol/L (98-107); CREATININE 1.2 mg/dL (0.6-1.3); GLUCOSE 102 mg/dL (74-106); POTASSIUM 3.6 mmol/L (3.5-5.1); SODIUM SERUM 143 mmol/L (136-145); UREA NITROGEN, BLOOD 14 mg/dL (7-18)
[2018-09-15 15:41] LABS: ALBUMIN 3.4 g/dL (3.4-5.0); AMYLASE 63 U/L (25-115); ASPARTATE AMINOTRANSFERASE 22 U/L (15-37); LIPASE 72 U/L (73-393); MAGNESIUM 2.1 mg/dL (1.8-2.4); TOTAL BILIRUBIN 0.3 mg/dL (0.0-1.0)
[2018-09-15 15:49] LABS: ACETONE, SERUM NEGATIVE (NEGATIVE)
[2018-09-15 15:50] LABS: PROTHROMBIN TIME 12.7 secs (10.8-13.4)
[2018-09-15 16:20] VITALS: BP 169/103
[2018-09-15 16:28] LABS: CHOL/HDL RATIO 2.4 (1-4.5); PHOSPHORUS 3.7 mg/dL (2.5-4.9); THYROID STIMULATING HORMONE 2.94 uIU/mL (0.34-3.74)
[2018-09-15] MEDS ORDERED: RIVA15TA1 PO (16:44)
[2018-09-15] MEDS ORDERED: cloNIDine 0.1 MG TAB PO SCH ×2 (17:00→18:10)
[2018-09-15] MEDS ORDERED: LISINOPRIL 10 MG TAB PO SCH (17:00)
[2018-09-15 17:23] VITALS: BP 169/103
[2018-09-15] MEDS ORDERED: MECLIZINE 25 MG TAB PO PRN (17:30)
[2018-09-15 17:48] LABS: FREE T4 (FREE THYROXINE) 1.29 ng/dL (0.76-1.46)
[2018-09-15] MEDS ORDERED: AMIO200T5 PO (18:13)
[2018-09-15] MEDS ORDERED: MIRT15TA PO (18:17)
[2018-09-15] MEDS ORDERED: CLON0.1T42 PO (18:17)
[2018-09-15] MEDS ORDERED: AMLO5TAB PO (18:17)
[2018-09-15] MEDS ORDERED: cloNIDine 0.1 MG TAB PO PRN (18:30)
[2018-09-15 20:00] VITALS: BP 128/70
[2018-09-15] MEDS: LORazepam 0.5 MG TAB PO PRN (21:14)
[2018-09-15] MEDS: DOCUSATE SODIUM 100 MG GELCAP PO SCH (21:14)
[2018-09-15] MEDS: MIRTAZAPINE 15 MG TAB PO SCH (21:14)
[2018-09-15] MEDS: TIMOLOL OP 0.5% 5 ML BTL OP SCH (21:15)
[2018-09-15] MEDS: AMIODARONE 200 MG TAB PO SCH (21:15)
[2018-09-16] VITALS (9 sets, daily range): BP systolic 94–136; BP diastolic 47–75
[2018-09-16] MEDS ORDERED: MEMA1CAP PO (06:09)
[2018-09-16 06:36] LABS: BASOPHILS % (AUTO) 0.5 % (0.0-2.0); EOSINOPHILS # (AUTO) 0.1 K/uL (0-0.4); EOSINOPHILS % (AUTO) 1.6 % (0.0-4.0); HEMOGLOBIN 11.8 g/dL (12.0-16.0); LYMPHOCYTES # (AUTO) 1.5 K/uL (2.5-16.5); LYMPHOCYTES % (AUTO) 35.7 % (20.5-51.1); MEAN CORPUSCULAR HEMOGLOBIN 29 pg (27-31); MEAN CORPUSCULAR HGB CONC 33 g/dL (33-37); MONOCYTES # (AUTO) 0.5 K/uL (0.8-1.0); MONOCYTES % (AUTO) 11.2 % (1.7-9.3); NEUTROPHILS # (AUTO) 2.1 K/uL (1.8-7.7); PLATELET COUNT (AUTO) 151 K/uL (140-450); RED BLOOD CELL COUNT(AUTO) 4.14 MIL/uL (4.20-5.40); RED CELL DISTRIBUTION WIDTH 15.8 % (11.6-13.7); WHITE BLOOD COUNT (AUTO) 4.2 K/uL (4.8-10.8)
[2018-09-16 07:11] LABS: ANION GAP 9.7 (8-16); CARBON DIOXIDE 27.9 mmol/L (21-32); CHLORIDE 112 mmol/L (98-107); GLUCOSE 104 mg/dL (74-106); POTASSIUM 3.6 mmol/L (3.5-5.1); SODIUM SERUM 146 mmol/L (136-145); UREA NITROGEN, BLOOD 13 mg/dL (7-18)
[2018-09-16 07:16] LABS: MAGNESIUM 2.2 mg/dL (1.8-2.4); PHOSPHORUS 3.4 mg/dL (2.5-4.9)
[2018-09-16] MEDS ORDERED: MEMANTINE HCL PO SCH (09:00)
[2018-09-16] MEDS ORDERED: DONEPEZIL HCL PO SCH (09:00)
[2018-09-16] MEDS ORDERED: TRAVOPROST OP SCH (09:00)
[2018-09-16] MEDS: LISINOPRIL 10 MG TAB PO SCH (09:35)
[2018-09-16] MEDS: DOCUSATE SODIUM 100 MG GELCAP PO SCH ×2 (09:35→20:37)
[2018-09-16] MEDS: amLODIPine 5 MG TAB PO SCH (09:37)
[2018-09-16] MEDS: ATORVASTATIN 20 MG TAB PO SCH (09:37)
[2018-09-16] MEDS: AMIODARONE 200 MG TAB PO SCH ×2 (09:38→20:38)
[2018-09-16] MEDS: TIMOLOL OP 0.5% 5 ML BTL OP SCH ×2 (09:40→20:38)
[2018-09-16] MEDS: RIVAROXABAN 15 MG TAB PO SCH (09:51)
[2018-09-16] MEDS ORDERED: NAMZARIC PO SCH (10:00)
[2018-09-16] MEDS ORDERED: TRAVATAN Z 0.004% OP SCH (11:00)
[2018-09-16] MEDS ORDERED: EYE OP SCH (11:00)
[2018-09-16 17:52] LABS: APPEARANCE,URINE HAZY (CLEAR); COLOR,URINE YELLOW (YELLOW)
[2018-09-16 17:53] LABS: BILIRUBIN,URINE NEGATIVE (NEGATIVE); BLOOD, URINE NEGATIVE (NEGATIVE); LEUKOCYTE ESTERASE ,URINE 2+ (NEGATIVE); NITRITE, URINE NEGATIVE (NEGATIVE); UGLUCOSE NEGATIVE (NEGATIVE)
[2018-09-16 17:57] LABS: RBC,URINE 0-5 (RARE) /HPF (0-5); WBC,URINE 16-25 (MOD) /HPF (0-5)
[2018-09-16 17:58] LABS: BARBITURATE, URINE NEG. ng/ml (NEG <=200); BENZODIAZEPINE, URINE NEG. ng/mL (NEG <=200); CANNABINOID, URINE NEG. ng/mL (NEG <=50); COCAINE, URINE NEG. ng/mL (NEG <=300); OPIATE, URINE NEG. ng/mL (NEG <=2000); PHENCYCLIDINE SCREEN,URINE NEG. ng/mL (NEG <=25)
[2018-09-16] MEDS ORDERED: SENNA 8.6 MG TAB PO SCH (20:30)
[2018-09-16] MEDS: MIRTAZAPINE 15 MG TAB PO SCH (20:38)
[2018-09-16] MEDS: LORazepam 0.5 MG TAB PO PRN (20:42)
[2018-09-17] VITALS: BP 108/56
[2018-09-17 04:00] VITALS: BP 128/64
[2018-09-17 07:03] LABS: BASOPHILS % (AUTO) 0.7 % (0.0-2.0); EOSINOPHILS # (AUTO) 0.1 K/uL (0-0.4); EOSINOPHILS % (AUTO) 2.1 % (0.0-4.0); HEMOGLOBIN 11.6 g/dL (12.0-16.0); LYMPHOCYTES # (AUTO) 1.5 K/uL (2.5-16.5); MEAN CORPUSCULAR HEMOGLOBIN 29 pg (27-31); MEAN CORPUSCULAR HGB CONC 33 g/dL (33-37); MEAN CORPUSCULAR VOLUME 86.2 fL (80-94); MONOCYTES # (AUTO) 0.4 K/uL (0.8-1.0); MONOCYTES % (AUTO) 9.5 % (1.7-9.3); NEUTROPHILS # (AUTO) 2.6 K/uL (1.8-7.7); NEUTROPHILS % (AUTO) 55.7 % (42.2-75.2); PLATELET COUNT (AUTO) 168 K/uL (140-450); RED BLOOD CELL COUNT(AUTO) 4.06 MIL/uL (4.20-5.40); RED CELL DISTRIBUTION WIDTH 15.6 % (11.6-13.7); WHITE BLOOD COUNT (AUTO) 4.6 K/uL (4.8-10.8)
[2018-09-17 07:21] LABS: MAGNESIUM 1.9 mg/dL (1.8-2.4); PHOSPHORUS 3.4 mg/dL (2.5-4.9)
[2018-09-17 07:29] LABS: ALBUMIN 2.9 g/dL (3.4-5.0); ANION GAP 6.6 (8-16); ASPARTATE AMINOTRANSFERASE 19 U/L (15-37); CARBON DIOXIDE 28.9 mmol/L (21-32); CHLORIDE 111 mmol/L (98-107); CREATININE 1.1 mg/dL (0.6-1.3); GLUCOSE 94 mg/dL (74-106); MAGNESIUM 2.1 mg/dL (1.8-2.4); POTASSIUM 3.5 mmol/L (3.5-5.1); SODIUM SERUM 143 mmol/L (136-145); THYROID STIMULATING HORMONE 5.16 uIU/mL (0.34-3.74); TOTAL BILIRUBIN 0.4 mg/dL (0.0-1.0); UREA NITROGEN, BLOOD 13 mg/dL (7-18)
[2018-09-17 08:00] VITALS: BP 129/65
[2018-09-17] MEDS: TIMOLOL OP 0.5% 5 ML BTL OP SCH ×2 (08:20→20:28)
[2018-09-17] MEDS: AMIODARONE 200 MG TAB PO SCH ×2 (08:40→20:27)
[2018-09-17] MEDS: DOCUSATE SODIUM 100 MG GELCAP PO SCH ×2 (08:41→20:27)
[2018-09-17] MEDS: amLODIPine 5 MG TAB PO SCH (08:41)
[2018-09-17] MEDS: NAMZARIC PO SCH (08:43)
[2018-09-17] MEDS: RIVAROXABAN 15 MG TAB PO SCH (08:48)
[2018-09-17] MEDS ORDERED: SENNA 8.6 MG TAB PO PRN ×2 (09:00)
[2018-09-17] MEDS: ATORVASTATIN 20 MG TAB PO SCH (10:00)
[2018-09-17] MEDS: LISINOPRIL 10 MG TAB PO SCH (10:00)
[2018-09-17] MEDS: TRAVATAN Z 0.004% OP SCH (10:00)
[2018-09-17] MEDS: EYE OP SCH (10:00)
[2018-09-17 12:00] VITALS: BP 124/67
[2018-09-17 16:00] VITALS: BP 102/78
[2018-09-17 20:00] VITALS: BP 125/62
[2018-09-17] MEDS: LORazepam 0.5 MG TAB PO PRN (20:27)
[2018-09-17] MEDS: MIRTAZAPINE 15 MG TAB PO SCH (20:27)
[2018-09-18] VITALS: BP 165/84
[2018-09-18 04:00] VITALS: BP 122/77
[2018-09-18 08:00] VITALS: BP 141/74
[2018-09-18 08:35] LABS: ANION GAP 11.3 (8-16); CARBON DIOXIDE 26.3 mmol/L (21-32); CHLORIDE 110 mmol/L (98-107); GLUCOSE 102 mg/dL (74-106); POTASSIUM 3.6 mmol/L (3.5-5.1); SODIUM SERUM 144 mmol/L (136-145); UREA NITROGEN, BLOOD 13 mg/dL (7-18)
[2018-09-18] MEDS: DOCUSATE SODIUM 100 MG GELCAP PO SCH (08:35)
[2018-09-18] MEDS: amLODIPine 5 MG TAB PO SCH (08:35)
[2018-09-18] MEDS: AMIODARONE 200 MG TAB PO SCH (08:35)
[2018-09-18] MEDS: EYE OP SCH (08:36)
[2018-09-18] MEDS: TRAVATAN Z 0.004% OP SCH (08:36)
[2018-09-18] MEDS: LISINOPRIL 10 MG TAB PO SCH (08:36)
[2018-09-18] MEDS: ATORVASTATIN 20 MG TAB PO SCH (08:36)
[2018-09-18] MEDS: TIMOLOL OP 0.5% 5 ML BTL OP SCH (08:38)
[2018-09-18] MEDS: NAMZARIC PO SCH (08:39)
[2018-09-18] MEDS: RIVAROXABAN 15 MG TAB PO SCH (08:48)
[2018-09-18 12:00] VITALS: BP 139/78
== END 2018-09-18 13:55 | disposition home or self-care (01) | DRG 74 ==
LOC: MED 13:33 → MTU 15:26
PROVIDERS: ADMIT General Practice; ATTEND Internal Medicine Geriatric Medicine
PROC: 5A2204Z Restoration of Cardiac Rhythm, Single (ICD-10-PCS; principal; 2018-09-15)
PROC: 4B02XSZ Measurement of Cardiac Pacemaker, External Approach (ICD-10-PCS; 2018-09-15)
DX: G90.8 Other disorders of autonomic nervous system (principal); I48.91 Unspecified atrial fibrillation; Z79.01 Long term (current) use of anticoagulants; I16.0 Hypertensive urgency; I10 Essential (primary) hypertension; Z95.0 Presence of cardiac pacemaker; Z85.89 Personal history of malignant neoplasm of other organs and systems; E78.5 Hyperlipidemia, unspecified; H40.9 Unspecified glaucoma; F03.90 Unspecified dementia, unspecified severity, without behavioral disturbance, psychotic disturbance, mood disturbance, and anxiety; F41.9 Anxiety disorder, unspecified; Z92.21 Personal history of antineoplastic chemotherapy; Z92.3 Personal history of irradiation; Z90.11 Acquired absence of right breast and nipple; I49.5 Sick sinus syndrome
CPT/HCPCS: 36415; 70450; 71045; 80048; 80053; 80305; 81001; 82009; 82150; 82550; 83036; 83690; 83735; 83880; 84100; 84134; 84439; 84443; 84484; 85025; 85610; 85730; 87081; 87086; 93005; 93880; 96374; 97110; 97530; 99285; J2405; J8597; Q0092

== ENCOUNTER 2018-10-21 17:10 | Emergency (ER) | payer OTHER ==
[~2018-10-21] VITALS: Ht 154.9 cm; Wt 52.2 kg
[~2018-10-21 17:10] MED LIST changes: +AMIO200T5 PO; +HYDR-5092 PO; +MEMA1CAP PO; +MIRT15TA PO; -OMEP20TC12 PO; +TRAV2.5S OP
[2018-10-21 17:14] VITALS: BP 154/73
--- NOTE | 2018-10-21 17:20 | NUR ---
NO BEDS AVAILABLE AT THIS TIME, PT PLACED IN A CHAIR NEAR THE NURSES STATION TO BE OBSERVED UNTIL A BED BECOMES AVAILABLE. DAUGHTER ACCOMPANIED.
--- NOTE | 2018-10-21 18:00 | NUR ---
A 82 YO F S/P FALL ON TUESDAY. PER MOTHER, PT HAS NOT COMPLAINED OF PAIN AND HAS BEEN GOING TO PHYSICAL THERAPY. SINCE TUESDAY PT UNABLE TO WALK AT ALL W/ C/O ENTIRE LEFT SIDE PAIN AND WEAKNES. PT HAD SMALL HEMATOMA TO THE HEAD ON TUESDAY BUT HAS SINCE GONE. DENIES N/V, LOC. 6/10 PAIN ON L HIP THAT RADIATES UPON MOVEMENT. RR EVEN AND UNLABORED. AAOX 4. DAUGHTER AT BEDSIDE. DENIES BLURRY VISION. NO DEFORMITY NOTED. WILL CONTINUE TO MONITOR. ER MD MADE AWARE. SAFETY PRECAUTIONS IMPLEMENTED.
--- NOTE | 2018-10-21 19:00 | NUR ---
PT. RESTING COMFORTABLY IN BED, RR EVEN AND UNLABORED. DAUGHTER AT BEDSIDE. WILL CONTINUE TO MONITOR.
--- NOTE | 2018-10-21 19:10 | NUR ---
Pt report given to BOBY PIERCE. Transfer of care at this time.
--- NOTE | 2018-10-21 19:15 | NUR ---
PT LAYING IN BED, DAUGHTER AT BEDSIDE, VSS, WILL CONTINUE TO MONITOR.
--- NOTE | 2018-10-21 19:32 | NUR ---
Dr. Ingram evaluating patient at bedside.
[2018-10-21] MEDS ORDERED: ACETAMINOPHEN 325 MG TAB PO ONE (19:40)
[2018-10-21] MEDS ORDERED: ACETAMINOPHEN 650 MG/20.3 ML UDC ONE (20:01)
--- NOTE | 2018-10-21 20:27 | NUR ---
Patient discharged with v/s stable. Written and verbal after care instructions given and explained. Patient alert, oriented and verbalized understanding of instructions. Wheel Chair Assisted with by caregiver. All questions addressed prior to discharge. ID band removed. Patient advised to follow up with PMD. Rx of TRAMADOL, ZOFRAN, TYLENOL given. Patient educated on indication of medication including possible reaction and side effects. Opportunity to ask questions provided and answered.
[2018-10-21 20:28] VITALS: BP 158/71
== END 2018-10-21 20:27 | disposition home or self-care (01) ==
LOC: MED 17:10
DX: M25.552 Pain in left hip (principal); M25.512 Pain in left shoulder; R51 Headache; I10 Essential (primary) hypertension; Z90.49 Acquired absence of other specified parts of digestive tract; Z79.899 Other long term (current) drug therapy; Z85.89 Personal history of malignant neoplasm of other organs and systems
CPT/HCPCS: 70450; 73030; 73502; 99284

== ENCOUNTER 2018-11-02 17:33 | Inpatient (IN) | payer OTHER ==
[~2018-11-02] VITALS: Ht 154.9 cm; Wt 52.6 kg
[2018-11-02 17:47] VITALS: BP 109/74
[2018-11-02] MEDS ORDERED: NACL 0.9% 1,000 ML IV ONE (18:47)
[2018-11-02] MEDS ORDERED: KETOROLAC 30 MG/ML VIAL IVP ONE (19:05)
[2018-11-02 19:50] LABS: BASOPHILS % (AUTO) 0.3 % (0.0-2.0); EOSINOPHILS # (AUTO) 0.1 K/uL (0-0.4); HEMOGLOBIN 12.4 g/dL (12.0-16.0); LYMPHOCYTES # (AUTO) 0.9 K/uL (2.5-16.5); LYMPHOCYTES % (AUTO) 18.3 % (20.5-51.1); MEAN CORPUSCULAR HEMOGLOBIN 27 pg (27-31); MEAN CORPUSCULAR HGB CONC 32 g/dL (33-37); MEAN CORPUSCULAR VOLUME 85.9 fL (80-94); MONOCYTES # (AUTO) 0.7 K/uL (0.8-1.0); MONOCYTES % (AUTO) 13.8 % (1.7-9.3); NEUTROPHILS # (AUTO) 3.4 K/uL (1.8-7.7); NEUTROPHILS % (AUTO) 66.6 % (42.2-75.2); PLATELET COUNT (AUTO) 138 K/uL (140-450); RED BLOOD CELL COUNT(AUTO) 4.54 MIL/uL (4.20-5.40); RED CELL DISTRIBUTION WIDTH 15.3 % (11.6-13.7); WHITE BLOOD COUNT (AUTO) 5.1 K/uL (4.8-10.8)
[2018-11-02 20:17] LABS: BILIRUBIN,URINE 2+ (NEGATIVE); BLOOD, URINE NEGATIVE (NEGATIVE); COLOR,URINE YELLOW (YELLOW); LEUKOCYTE ESTERASE ,URINE NEGATIVE (NEGATIVE); NITRITE, URINE NEGATIVE (NEGATIVE); UGLUCOSE NEGATIVE (NEGATIVE)
[2018-11-02 20:18] LABS: APPEARANCE,URINE HAZY (CLEAR)
[2018-11-02 20:20] LABS: ALBUMIN 3.1 g/dL (3.4-5.0); ANION GAP 13.6 (8-16); ASPARTATE AMINOTRANSFERASE 465 U/L (15-37); CARBON DIOXIDE 25.3 mmol/L (21-32); CHLORIDE 103 mmol/L (98-107); CREATININE 1.1 mg/dL (0.6-1.3); GLUCOSE 93 mg/dL (74-106); SODIUM SERUM 139 mmol/L (136-145); TOTAL BILIRUBIN 0.9 mg/dL (0.0-1.0); UREA NITROGEN, BLOOD 25 mg/dL (7-18)
[2018-11-02 20:29] LABS: POTASSIUM 2.9 mmol/L (3.5-5.1)
[2018-11-02 20:37] LABS: PROTHROMBIN TIME 12.3 secs (10.8-13.4)
[2018-11-02] MEDS ORDERED: KCL 20 MEQ/WATER INJ PREMIX 200 ML IV ONE (20:40)
[2018-11-02 22:00] VITALS: BP 161/82
[2018-11-02] MEDS: POTASSIUM CHL 30 MEQ/ D5-1/2NS 1,000 ML IV SCH (23:38)
[2018-11-03] VITALS: BP 123/66
[2018-11-03 04:00] VITALS: BP 130/66
[2018-11-03 08:00] VITALS: BP 130/66
[2018-11-03 08:07] LABS: BASOPHILS % (AUTO) 0.3 % (0.0-2.0); EOSINOPHILS # (AUTO) 0.1 K/uL (0-0.4); EOSINOPHILS % (AUTO) 1.3 % (0.0-4.0); HEMATOCRIT 35.1 % (36-48); HEMOGLOBIN 11.5 g/dL (12.0-16.0); LYMPHOCYTES # (AUTO) 0.8 K/uL (2.5-16.5); LYMPHOCYTES % (AUTO) 17.9 % (20.5-51.1); MEAN CORPUSCULAR HEMOGLOBIN 28 pg (27-31); MEAN CORPUSCULAR HGB CONC 33 g/dL (33-37); MONOCYTES # (AUTO) 0.6 K/uL (0.8-1.0); NEUTROPHILS # (AUTO) 3.2 K/uL (1.8-7.7); NEUTROPHILS % (AUTO) 68.5 % (42.2-75.2); PLATELET COUNT (AUTO) 126 K/uL (140-450); RED BLOOD CELL COUNT(AUTO) 4.13 MIL/uL (4.20-5.40); RED CELL DISTRIBUTION WIDTH 15.3 % (11.6-13.7); WHITE BLOOD COUNT (AUTO) 4.6 K/uL (4.8-10.8)
[2018-11-03 08:15] LABS: ALBUMIN 2.7 g/dL (3.4-5.0); ANION GAP 9.4 (8-16); ASPARTATE AMINOTRANSFERASE 348 U/L (15-37); CARBON DIOXIDE 26.8 mmol/L (21-32); CHLORIDE 106 mmol/L (98-107); CREATININE 0.8 mg/dL (0.6-1.3); GLUCOSE 101 mg/dL (74-106); MAGNESIUM 1.7 mg/dL (1.8-2.4); POTASSIUM 3.2 mmol/L (3.5-5.1); SODIUM SERUM 139 mmol/L (136-145); TOTAL BILIRUBIN 0.8 mg/dL (0.0-1.0); UREA NITROGEN, BLOOD 20 mg/dL (7-18)
[2018-11-03 08:51] LABS: PROTHROMBIN TIME 12.1 secs (10.8-13.4)
[2018-11-03] MEDS ORDERED: POTASSIUM CHL 20 MEQ/NACL 0.9% 1,000 ML IV SCH (09:25)
[2018-11-03] MEDS ORDERED: MAG SULF 2000 MG/WATER PREMIX 50 ML IV ONE (09:25)
[2018-11-03] MEDS: MAGNESIUM SULFATE 1GM in DEXTROSE 5% 100 ML PREMIX IV SCH ×2 (11:05→12:09)
[2018-11-03 12:00] VITALS: BP 143/75
[2018-11-03] MEDS ORDERED: KCL 20 MEQ/WATER INJ PREMIX 100 ML IV SCH (13:30)
[2018-11-03] MEDS: POTASSIUM CHL 30 MEQ/ D5-1/2NS 1,000 ML IV SCH ×2 (15:35→21:47)
[2018-11-03 16:00] VITALS: BP 144/67
[2018-11-03] MEDS ORDERED: guaiFENesin/CODEINE 100/10MG 5 ML UDC PO PRN (16:05)
[2018-11-03 20:00] VITALS: BP 140/82
[2018-11-03] MEDS ORDERED: TEMAZEPAM 15 MG CAP PO SCH (21:00)
[2018-11-03] MEDS: traMADol 50 MG TAB PO PRN (21:40)
[2018-11-04] VITALS: BP 152/80
[2018-11-04 04:00] VITALS: BP 132/76
[2018-11-04 07:33] LABS: BASOPHILS % (AUTO) 0.3 % (0.0-2.0); EOSINOPHILS % (AUTO) 0.9 % (0.0-4.0); HEMATOCRIT 34.8 % (36-48); HEMOGLOBIN 11.5 g/dL (12.0-16.0); LYMPHOCYTES # (AUTO) 0.8 K/uL (2.5-16.5); LYMPHOCYTES % (AUTO) 15.7 % (20.5-51.1); MEAN CORPUSCULAR HEMOGLOBIN 28 pg (27-31); MEAN CORPUSCULAR HGB CONC 33 g/dL (33-37); MEAN CORPUSCULAR VOLUME 84.6 fL (80-94); MONOCYTES # (AUTO) 0.5 K/uL (0.8-1.0); MONOCYTES % (AUTO) 10.7 % (1.7-9.3); NEUTROPHILS # (AUTO) 3.6 K/uL (1.8-7.7); NEUTROPHILS % (AUTO) 72.4 % (42.2-75.2); PLATELET COUNT (AUTO) 131 K/uL (140-450); RED BLOOD CELL COUNT(AUTO) 4.11 MIL/uL (4.20-5.40); RED CELL DISTRIBUTION WIDTH 15.4 % (11.6-13.7)
[2018-11-04 07:57] LABS: ALBUMIN 2.6 g/dL (3.4-5.0); ANION GAP 12.6 (8-16); ASPARTATE AMINOTRANSFERASE 430 U/L (15-37); CARBON DIOXIDE 25.4 mmol/L (21-32); CHLORIDE 103 mmol/L (98-107); CREATININE 0.8 mg/dL (0.6-1.3); GLUCOSE 142 mg/dL (74-106); MAGNESIUM 2.1 mg/dL (1.8-2.4); SODIUM SERUM 137 mmol/L (136-145); TOTAL BILIRUBIN 1.1 mg/dL (0.0-1.0); UREA NITROGEN, BLOOD 14 mg/dL (7-18)
[2018-11-04 08:00] VITALS: BP 151/82
[2018-11-04 08:06] LABS: PROTHROMBIN TIME 10.8 secs (10.8-13.4)
[2018-11-04 10:14] LABS: HEPATITIS B CORE AB TOTAL Negative (Negative); HEPATITIS B SURFACE ANTIBODY Non Reactive (.); HEPATITIS B SURFACE ANTIGEN Negative (Negative)
[2018-11-04] MEDS: LEVOFLOXACIN 250 MG/D5 PREMIX 50 ML IV SCH (10:59)
[2018-11-04 12:00] VITALS: BP_SYST 154; BP_SYST 173; BP_DIAS 90; BP_DIAS 93
[2018-11-04] MEDS: metroNIDAZOLE 250 MG/NS PREMIX 50 ML IV SCH ×2 (13:46→22:54)
[2018-11-04 16:00] VITALS: BP 173/93
[2018-11-04] MEDS ORDERED: RIVAROXABAN 15 MG TAB PO SCH (19:00)
[2018-11-04] MEDS ORDERED: amLODIPine 5 MG TAB PO SCH (19:00)
[2018-11-04 20:00] VITALS: BP 133/75
[2018-11-04] MEDS: traMADol 50 MG TAB PO PRN (20:56)
[2018-11-04] MEDS ORDERED: TEMAZEPAM 15 MG CAP ONE (23:11)
[2018-11-05] MEDS: POTASSIUM CHL 30 MEQ/ D5-1/2NS 1,000 ML IV SCH ×2 (00:55→17:49)
[2018-11-05] MEDS: metroNIDAZOLE 250 MG/NS PREMIX 50 ML IV SCH ×3 (06:06→21:00)
[2018-11-05 08:00] VITALS: BP 182/97
[2018-11-05] MEDS ORDERED: RIVAROXABAN 15 MG TAB PO SCH (09:00)
[2018-11-05] MEDS: amLODIPine 5 MG TAB PO SCH (09:04)
[2018-11-05] MEDS: LEVOFLOXACIN 250 MG/D5 PREMIX 50 ML IV SCH (10:19)
[2018-11-05] MEDS: traMADol 50 MG TAB PO PRN (13:42)
[2018-11-05 20:00] VITALS: BP 137/67
[2018-11-05] MEDS ORDERED: TEMAZEPAM 15 MG CAP ONE (20:58)
[2018-11-05] MEDS: LORazepam 0.5 MG TAB PO PRN (20:59)
[2018-11-05] MEDS: TEMAZEPAM 15 MG CAP PO PRN (22:34)
[2018-11-06] MEDS: metroNIDAZOLE 250 MG/NS PREMIX 50 ML IV SCH ×3 (04:55→20:14)
[2018-11-06 07:03] LABS: BASOPHILS % (AUTO) 0.3 % (0.0-2.0); EOSINOPHILS # (AUTO) 0.1 K/uL (0-0.4); EOSINOPHILS % (AUTO) 1.4 % (0.0-4.0); HEMATOCRIT 36.6 % (36-48); HEMOGLOBIN 11.7 g/dL (12.0-16.0); LYMPHOCYTES # (AUTO) 0.9 K/uL (2.5-16.5); LYMPHOCYTES % (AUTO) 21.3 % (20.5-51.1); MEAN CORPUSCULAR HEMOGLOBIN 27 pg (27-31); MEAN CORPUSCULAR HGB CONC 32 g/dL (33-37); MEAN CORPUSCULAR VOLUME 85.2 fL (80-94); MONOCYTES # (AUTO) 0.6 K/uL (0.8-1.0); MONOCYTES % (AUTO) 15.2 % (1.7-9.3); NEUTROPHILS # (AUTO) 2.6 K/uL (1.8-7.7); NEUTROPHILS % (AUTO) 61.8 % (42.2-75.2); PLATELET COUNT (AUTO) 129 K/uL (140-450); RED CELL DISTRIBUTION WIDTH 15.2 % (11.6-13.7); WHITE BLOOD COUNT (AUTO) 4.1 K/uL (4.8-10.8)
[2018-11-06 07:10] LABS: CARBON DIOXIDE 25.2 mmol/L (21-32); CHLORIDE 104 mmol/L (98-107); CREATININE 0.6 mg/dL (0.6-1.3); GLUCOSE 118 mg/dL (74-106); POTASSIUM 4.2 mmol/L (3.5-5.1); SODIUM SERUM 135 mmol/L (136-145); UREA NITROGEN, BLOOD 7 mg/dL (7-18)
[2018-11-06 07:16] LABS: AMYLASE 48 U/L (25-115); LIPASE 165 U/L (73-393)
[2018-11-06] MEDS: amLODIPine 5 MG TAB PO SCH (09:00)
[2018-11-06] MEDS: LEVOFLOXACIN 250 MG/D5 PREMIX 50 ML IV SCH (10:00)
[2018-11-06] MEDS: POTASSIUM CHL 30 MEQ/ D5-1/2NS 1,000 ML IV SCH ×2 (10:15→22:09)
[2018-11-06] MEDS ORDERED: ONDANSETRON 4 MG/2 ML VIAL IVP PRN (11:15)
[2018-11-06] MEDS ORDERED: HYDROmorphone 1 MG/ML AMP IVP PRN (11:15)
[2018-11-06 12:00] VITALS: BP 155/80
[2018-11-06] MEDS: traMADol 50 MG TAB PO PRN (17:26)
[2018-11-06 20:00] VITALS: BP 157/69
[2018-11-06] MEDS: TEMAZEPAM 15 MG CAP PO PRN (20:13)
[2018-11-06] MEDS: LORazepam 0.5 MG TAB PO PRN (20:14)
[2018-11-07] MEDS: metroNIDAZOLE 250 MG/NS PREMIX 50 ML IV SCH ×3 (04:17→21:40)
[2018-11-07 07:58] LABS: BASOPHILS % (AUTO) 0.5 % (0.0-2.0); EOSINOPHILS # (AUTO) 0.1 K/uL (0-0.4); EOSINOPHILS % (AUTO) 1.6 % (0.0-4.0); HEMATOCRIT 36.2 % (36-48); LYMPHOCYTES # (AUTO) 1.1 K/uL (2.5-16.5); LYMPHOCYTES % (AUTO) 23.3 % (20.5-51.1); MEAN CORPUSCULAR HEMOGLOBIN 28 pg (27-31); MEAN CORPUSCULAR HGB CONC 33 g/dL (33-37); MEAN CORPUSCULAR VOLUME 84.7 fL (80-94); MONOCYTES # (AUTO) 0.7 K/uL (0.8-1.0); MONOCYTES % (AUTO) 14.7 % (1.7-9.3); NEUTROPHILS # (AUTO) 2.7 K/uL (1.8-7.7); NEUTROPHILS % (AUTO) 59.9 % (42.2-75.2); PLATELET COUNT (AUTO) 130 K/uL (140-450); RED BLOOD CELL COUNT(AUTO) 4.27 MIL/uL (4.20-5.40); RED CELL DISTRIBUTION WIDTH 15.6 % (11.6-13.7); WHITE BLOOD COUNT (AUTO) 4.5 K/uL (4.8-10.8)
[2018-11-07 08:07] LABS: ALBUMIN 2.5 g/dL (3.4-5.0); ANION GAP 12.6 (8-16); ASPARTATE AMINOTRANSFERASE 110 U/L (15-37); CARBON DIOXIDE 25.7 mmol/L (21-32); CHLORIDE 104 mmol/L (98-107); CREATININE 0.7 mg/dL (0.6-1.3); GLUCOSE 117 mg/dL (74-106); POTASSIUM 4.3 mmol/L (3.5-5.1); SODIUM SERUM 138 mmol/L (136-145); TOTAL BILIRUBIN 0.5 mg/dL (0.0-1.0); UREA NITROGEN, BLOOD 5 mg/dL (7-18)
[2018-11-07] MEDS: LEVOFLOXACIN 250 MG/D5 PREMIX 50 ML IV SCH (10:13)
[2018-11-07 11:59] VITALS: BP 172/85
[2018-11-07] MEDS: amLODIPine 5 MG TAB PO SCH (12:12)
[2018-11-07] MEDS ORDERED: amLODIPine 5 MG TAB PO SCH ×3 (14:10→21:00)
[2018-11-07 16:15] VITALS: BP 170/84
[2018-11-07] MEDS ORDERED: cloNIDine 0.1 MG TAB PO PRN (16:15)
[2018-11-07 18:57] VITALS: BP 157/79
[2018-11-07] MEDS: POTASSIUM CHL 30 MEQ/ D5-1/2NS 1,000 ML IV SCH (19:35)
[2018-11-07] MEDS: LORazepam 0.5 MG TAB PO PRN (20:24)
[2018-11-07] MEDS: TEMAZEPAM 15 MG CAP PO PRN (20:25)
[2018-11-07] MEDS: traMADol 50 MG TAB PO PRN (20:32)
[2018-11-08] MEDS: metroNIDAZOLE 250 MG/NS PREMIX 50 ML IV SCH ×3 (05:32→20:38)
[2018-11-08 08:00] VITALS: BP 164/94
[2018-11-08] MEDS: amLODIPine 5 MG TAB PO SCH ×2 (09:33→20:38)
[2018-11-08] MEDS: LEVOFLOXACIN 250 MG/D5 PREMIX 50 ML IV SCH (09:34)
[2018-11-08] MEDS ORDERED: SODIUM PHOSPHATE 118 ML ENEM RC PRN (14:40)
[2018-11-08] MEDS ORDERED: BISACODYL 5 MG TABEC PO SCH (15:00)
[2018-11-08 16:00] VITALS: BP 143/66
[2018-11-08] MEDS: POTASSIUM CHL 30 MEQ/ D5-1/2NS 1,000 ML IV SCH ×2 (17:37)
[2018-11-08] MEDS: traMADol 50 MG TAB PO PRN (20:39)
[2018-11-08] MEDS: TEMAZEPAM 15 MG CAP PO PRN (20:39)
[2018-11-08] MEDS: LORazepam 0.5 MG TAB PO PRN (20:39)
[2018-11-09] VITALS: BP 131/69
[2018-11-09] MEDS: metroNIDAZOLE 250 MG/NS PREMIX 50 ML IV SCH ×2 (04:25→12:48)
[2018-11-09] MEDS: POTASSIUM CHL 30 MEQ/ D5-1/2NS 1,000 ML IV SCH (04:55)
[2018-11-09 07:37] LABS: BASOPHILS % (AUTO) 0.8 % (0.0-2.0); EOSINOPHILS # (AUTO) 0.1 K/uL (0-0.4); EOSINOPHILS % (AUTO) 1.6 % (0.0-4.0); HEMATOCRIT 36.2 % (36-48); HEMOGLOBIN 11.8 g/dL (12.0-16.0); LYMPHOCYTES # (AUTO) 0.5 K/uL (2.5-16.5); LYMPHOCYTES % (AUTO) 11.9 % (20.5-51.1); MEAN CORPUSCULAR HEMOGLOBIN 28 pg (27-31); MEAN CORPUSCULAR HGB CONC 33 g/dL (33-37); MEAN CORPUSCULAR VOLUME 85.3 fL (80-94); MONOCYTES # (AUTO) 0.5 K/uL (0.8-1.0); MONOCYTES % (AUTO) 12.4 % (1.7-9.3); NEUTROPHILS # (AUTO) 3.1 K/uL (1.8-7.7); NEUTROPHILS % (AUTO) 73.3 % (42.2-75.2); PLATELET COUNT (AUTO) 163 K/uL (140-450); RED BLOOD CELL COUNT(AUTO) 4.24 MIL/uL (4.20-5.40); RED CELL DISTRIBUTION WIDTH 15.6 % (11.6-13.7); WHITE BLOOD COUNT (AUTO) 4.3 K/uL (4.8-10.8)
[2018-11-09 08:00] VITALS: BP 141/69
[2018-11-09 08:10] LABS: ALBUMIN 2.6 g/dL (3.4-5.0); ANION GAP 13.5 (8-16); ASPARTATE AMINOTRANSFERASE 65 U/L (15-37); CARBON DIOXIDE 25.3 mmol/L (21-32); CHLORIDE 102 mmol/L (98-107); CREATININE 0.7 mg/dL (0.6-1.3); GLUCOSE 104 mg/dL (74-106); POTASSIUM 3.8 mmol/L (3.5-5.1); SODIUM SERUM 137 mmol/L (136-145); TOTAL BILIRUBIN 0.6 mg/dL (0.0-1.0); UREA NITROGEN, BLOOD 5 mg/dL (7-18)
[2018-11-09] MEDS: amLODIPine 5 MG TAB PO SCH (09:06)
[2018-11-09] MEDS ORDERED: LEVOFLOXACIN 250 MG/D5 PREMIX 50 ML IV SCH (10:00)
[2018-11-09 16:00] VITALS: BP 125/71
[2018-11-09] MEDS ORDERED: MIRT15TA PO ×3 (16:22→18:08)
[2018-11-09] MEDS ORDERED: ROB PO (18:09)
[2018-11-10 09:22] LABS: ANTI-NUCLEAR ANTIBODY TITER NEGATIVE (Negative)
== END 2018-11-09 19:20 | disposition home health service (06) | DRG 445 ==
LOC: MED 17:33 → MTU 21:15
PROVIDERS: ADMIT Internal Medicine Geriatric Medicine; ATTEND Internal Medicine Geriatric Medicine
PROC: 0DB68ZX Excision of Stomach, Via Natural or Artificial Opening Endoscopic, Diagnostic (ICD-10-PCS; 2018-11-06)
PROC: BF141ZZ Fluoroscopy of Gallbladder, Bile Ducts and Pancreatic Ducts using Low Osmolar Contrast (ICD-10-PCS; 2018-11-06)
PROC: 0F7C8ZZ Dilation of Ampulla of Vater, Via Natural or Artificial Opening Endoscopic (ICD-10-PCS; principal; 2018-11-06 10:00)
DX: K80.31 Calculus of bile duct with cholangitis, unspecified, with obstruction (principal); E44.0 Moderate protein-calorie malnutrition; E87.6 Hypokalemia; E78.5 Hyperlipidemia, unspecified; I10 Essential (primary) hypertension; I48.2 Chronic atrial fibrillation; H40.9 Unspecified glaucoma; I25.10 Atherosclerotic heart disease of native coronary artery without angina pectoris; K22.2 Esophageal obstruction; K29.70 Gastritis, unspecified, without bleeding; F32.9 Major depressive disorder, single episode, unspecified; R62.7 Adult failure to thrive; Z95.0 Presence of cardiac pacemaker; Z79.01 Long term (current) use of anticoagulants; Z85.3 Personal history of malignant neoplasm of breast; Z90.49 Acquired absence of other specified parts of digestive tract; Z79.899 Other long term (current) drug therapy; Z68.21 Body mass index [BMI] 21.0-21.9, adult
CPT/HCPCS: 36415; 36600; 71045; 76700; 77003; 80048; 80053; 81003; 82150; 82803; 83516; 83605; 83690; 83735; 84134; 85025; 85610; 85730; 86376; 86704; 86706; 86708; 86803; 87040; 87081; 87086; 87340; 88305; 88312; 88313; 93005; 96361; 96374; 97110; 97116; 97530; 99285; C1773; J1885; J1956; J3480; J3490; Q0092

== ENCOUNTER 2018-11-12 11:43 | Observation (INO) | payer OTHER ==
[~2018-11-12] VITALS: Ht 157.5 cm; Wt 62.6 kg
[~2018-11-12 11:43] MED LIST changes: -AMIO200T5 PO; -ATOR40TA PO; -HYDR-5092 PO; -LISI10TA11 PO; -RIVA15TA1 PO; +ROB PO
--- NOTE | 2018-11-12 11:45 | NUR ---
PT BIBA ALS TO BED 11
[2018-11-12 11:47] VITALS: BP 121/73
--- NOTE | 2018-11-12 12:00 | NUR ---
PATIENT PRESENTS TO ED WITH brought in by ems from pt's home syncope witnessed by pt's daughter while in bed---no injury/trauma c/o generalized weakness; recent dc from our hospital . DENIES N/V/D; SKIN IS PINK/WARM/DRY; AAOX4 LUNGS CLEAR BL; HR EVEN AND REGULAR; PT DENIES ANY FEVER, CP, SOB, OR COUGH AT THIS TIME; PATIENT STATES PAIN OF 0/10 AT THIS TIME; VSS; PATIENT POSITIONED FOR COMFORT; HOB ELEVATED; BEDRAILS UP X2; BED DOWN. ER MD MADE AWARE OF PT STATUS.
[2018-11-12] MEDS ORDERED: NACL 0.9% 500 ML IV SCH (12:04)
--- NOTE | 2018-11-12 12:13 | NUR ---
XRAY AT BEDSIDE
--- NOTE | 2018-11-12 12:17 | NUR ---
cxr completed at bedside---family at bedside
--- NOTE | 2018-11-12 12:22 | NUR ---
pt to ct via [facility]
--- NOTE | 2018-11-12 12:23 | NUR ---
PT TAKEN TO CT VIA [facility]
--- NOTE | 2018-11-12 12:30 | NUR ---
PT RETURNED FROM CT
--- NOTE | 2018-11-12 12:38 | NUR ---
lab at bedside
--- NOTE | 2018-11-12 12:45 | NUR ---
Patient being evaluated by physician at bedside.
[2018-11-12 12:56] LABS: BASOPHILS % (AUTO) 0.5 % (0.0-2.0); EOSINOPHILS # (AUTO) 0.1 K/uL (0-0.4); HEMATOCRIT 41.6 % (36-48); HEMOGLOBIN 13.3 g/dL (12.0-16.0); LYMPHOCYTES # (AUTO) 1.2 K/uL (2.5-16.5); LYMPHOCYTES % (AUTO) 24.6 % (20.5-51.1); MEAN CORPUSCULAR HEMOGLOBIN 27 pg (27-31); MEAN CORPUSCULAR HGB CONC 32 g/dL (33-37); MEAN CORPUSCULAR VOLUME 85.1 fL (80-94); MONOCYTES # (AUTO) 0.5 K/uL (0.8-1.0); NEUTROPHILS # (AUTO) 3.1 K/uL (1.8-7.7); NEUTROPHILS % (AUTO) 63.9 % (42.2-75.2); PLATELET COUNT (AUTO) 181 K/uL (140-450); RED BLOOD CELL COUNT(AUTO) 4.88 MIL/uL (4.20-5.40); RED CELL DISTRIBUTION WIDTH 15.7 % (11.6-13.7); WHITE BLOOD COUNT (AUTO) 4.9 K/uL (4.8-10.8)
[2018-11-12 13:17] LABS: ALBUMIN 2.8 g/dL (3.4-5.0); ANION GAP 11.9 (8-16); ASPARTATE AMINOTRANSFERASE 117 U/L (15-37); CARBON DIOXIDE 28.6 mmol/L (21-32); CHLORIDE 103 mmol/L (98-107); POTASSIUM 3.5 mmol/L (3.5-5.1); SODIUM SERUM 140 mmol/L (136-145); TOTAL BILIRUBIN 0.7 mg/dL (0.0-1.0); UREA NITROGEN, BLOOD 16 mg/dL (7-18)
[2018-11-12 13:28] LABS: ACETAMINOPHEN < 0.5 ug/ml (10-30); SALICYLATE < 2.8 mg/dL (2.8-20.0)
[2018-11-12 13:29] LABS: GLUCOSE 118 mg/dL (74-106)
[2018-11-12 13:30] LABS: APPEARANCE,URINE CLEAR (CLEAR); BILIRUBIN,URINE NEGATIVE (NEGATIVE); BLOOD, URINE NEGATIVE (NEGATIVE); COLOR,URINE YELLOW (YELLOW); LEUKOCYTE ESTERASE ,URINE NEGATIVE (NEGATIVE); NITRITE, URINE NEGATIVE (NEGATIVE); UGLUCOSE NEGATIVE (NEGATIVE)
[2018-11-12 13:33] LABS: BARBITURATE, URINE NEG. ng/ml (NEG <=200); BENZODIAZEPINE, URINE NEG. ng/mL (NEG <=200); CANNABINOID, URINE NEG. ng/mL (NEG <=50); COCAINE, URINE NEG. ng/mL (NEG <=300); OPIATE, URINE NEG. ng/mL (NEG <=2000); PHENCYCLIDINE SCREEN,URINE NEG. ng/mL (NEG <=25)
[2018-11-12 13:39] LABS: RBC,URINE NONE SEEN /HPF (0-5); WBC,URINE 0-5 (RARE) /HPF (0-5)
[2018-11-12 13:40] LABS: URINE AMORPHOUS URATE 1+ /HPF (None Seen)
[2018-11-12] MEDS ORDERED: ONDANSETRON 4 MG/2 ML VIAL IVP PRN (14:25)
[2018-11-12] MEDS ORDERED: ACETAMINOPHEN 325 MG TAB PO PRN (14:25)
[2018-11-12] MEDS ORDERED: cloNIDine 0.1 MG TAB PO PRN (14:25)
--- NOTE | 2018-11-12 14:33 | NUR ---
PT TAKEN TO TELE FLOOR BY BOBY SONI AND EMT STEVEN
--- NOTE | 2018-11-12 14:36 | NUR ---
ORDERS FOR ORTHOSTATIC BP DONE AND CARRIED OUT. STANDING BP WAS NOT ADMINISTERED DUE TO PATIENTS DX OF SYNCOPE. WILL CONTINUE TO MONITOR
--- NOTE | 2018-11-12 14:36 | NUR ---
RECEIVED PT. IN UNIT VIA [facility], ACCOMPANIED BY RN FROM ER; DX IS SYNCOPE, HX OF A-FIB, PACEMAKER, HTN, CHOLECYSTECTOMY, RIGHT SIDED MASTECTOMY. FLU AND PNEUMO VACCINE RECEIVED IN 2018. PATIENT IS A/Ox4, ABLE TO MAKE NEEDS KNOWN; ORIENTED PATIENT TO ROOM. IV ON LEFT WRIST, 22 GAUGE, PATENT, NO S/SX OF SWELLING OR INFECTION NOTED. ON REGULAR, [facility] WITH ENSURE TID. ON FALL PRECAUTIONS AND RESTRICTED EXTREMITY ON RIGHT SIDE. CALL LIGHT WITHIN REACH. WILL CONTINUE TO MONITOR
--- NOTE | 2018-11-12 14:55 | NUR ---
NOTIFIED DR JAMES ABOUT ORTHOSTATIC HYPOTENSION. RECEIVED DIET ORDER FROM DR JAMES. Addendum: 11/12/18 at 1845 by Deon Swift RN SPOKE WITH DR JAMES OVER THE PHONE AROUND [id number]
[2018-11-12 15:00] VITALS: BP 151/92
--- NOTE | 2018-11-12 15:00 | NUR ---
MADE FAMILY AWARE DORZOLAMIDE/TIMOLOL EYE DROP NEEDED FROM HOME. PT'S DAUGHTER SAID THAT SHE WILL BRING IT.
[2018-11-12 15:15] VITALS: BP 137/83
[2018-11-12 15:20] VITALS: BP 99/58
--- NOTE | 2018-11-12 15:30 | NUR ---
REPOSITIONED PT. CHUX IS DRY. PT TOLERATED FAIR.
--- NOTE | 2018-11-12 18:00 | NUR ---
REPOSITIONED PT, PIC TAKEN FOR THE SACRAL. PT'S DAUGHTER SIGNED DNR FORM. POOR APPETITE. GOT ENSURE FOR PT.
--- NOTE | 2018-11-12 18:41 | NUR ---
PT'S FAMILY C/O HEATER NOT WORKING. WORK ORDER [id number] FILED FOR HEATER IN THE ROOM.
--- NOTE | 2018-11-12 19:00 | NUR ---
PT HAS NOT YET DRINK THE ENSURE. PT IS SLEEPING ACCORDING TO DAUGHTER WHO IS AT BEDSIDE.
--- NOTE | 2018-11-12 19:28 | NUR ---
ENDORSED TO PM SHIFT NURSE HAYLEY. PATIENT ASLEEP, EYES CLOSED, VISIBLE CHEST RISE AND FALL NOTED. WILL CONTINUE TO MONITOR
--- NOTE | 2018-11-12 19:29 | NUR ---
RECEIVED BEDSIDE REPORT. PT SLEEPING COMFORTABLY IN BED. RESPIRATIONS ARE EQUAL AND UNLABORED. DAUGHTER MIMI IS AT BEDSIDE. ORTHOSTATIC HYPOTENSION WAS DONE TODAY PTS B/P FROM 137/83 107 BPM, TO 99/58 116 BPM. PT ON FALL PROTOCOL. BED ALARM ON AND LOWEST POSITION. PER DAUGHTER AND NURSE PT A&OX4. WILL FOLLOW UP. HAS IV ON LEFT WRIST 22G CLEAN DRY AND INTACT. SKIN INTACT HAS SOME SACRAL REDNESS HYDRAGUARD ORDERED. PT INCONTINENT. HX OF RIGHT SIDE BREAST CANCER. NO B/P ON R SIGN IN ROOM AND PINK ARM BAND ON. PLAN OF CARE WAS DISCUSSED. ALL SAFETY MEASURES ARE IN PLACE. WILL CONTINUE TO MONITOR.
[2018-11-12 20:00] VITALS: BP 107/63
[2018-11-12] MEDS: MIRTAZAPINE 15 MG TAB PO SCH (20:22)
[2018-11-12] MEDS: HYDRAGUARD CREAM TP SCH (20:23)
[2018-11-12] MEDS: LORazepam 0.5 MG TAB PO PRN (20:23)
--- NOTE | 2018-11-12 20:23 | NUR ---
DUE MEDICATIONS WERE GIVEN PT TOLERATED WELL. PT TOOK PILLS WITH ENSURE. PT CLEANED AND TURN FOR COMFORT. ALL NEEDS MET AT THIS TIME. CALL LIGHT WITHIN REACH. BED ALARM ON
[2018-11-12] MEDS ORDERED: NON-FORMULARY ITEM (Dorzolamide HCl/Timolol Maleat (Dorzolamide-Timolol Eye Drops) 1 DROP) OP SCH (21:00)
--- NOTE | 2018-11-12 22:06 | NUR ---
PT SLEEPING. RESPIRATIONS ARE EQUAL AND UNLABORED. SAFETY MEASURES ARE IN PLACE. CALL LIGHT WITHIN REACH.
[2018-11-13 00:30] VITALS: BP 123/70
--- NOTE | 2018-11-13 01:10 | NUR ---
PT WAS CONFUSED SAID SHE GOT LOST IN THE PARK AND HER DAUGHTER MUST BE WORRIED. REORIENTED TO THE HOSPITAL AND ROOM. TOLD PT HER DAUGHTER WAS JUST HERE WILL BE BACK TOMORROW MORNING. PT INSISTED TO TALK TO DAUGHTER. PT TALKED TO DAUGHTER AND WAS MORE CALMED. WILL CONTINUE TO MONITOR.
[2018-11-13] MEDS: POTASSIUM CHL 20 MEQ/NACL 0.9% 1,000 ML IV SCH ×2 (03:54→17:51)
--- NOTE | 2018-11-13 03:54 | NUR ---
IVF BEGAN AT 0354 NS 20MEQ KCL AT 60ML/H
[2018-11-13 04:00] VITALS: BP 136/64
--- NOTE | 2018-11-13 04:30 | NUR ---
VITAL SIGNS ARE WITHIN NORMAL LIMITS. ALL NEEDS MET AT THIS TIME. WILL CONTINUE TO MONITOR.
[2018-11-13 07:14] LABS: BASOPHILS % (AUTO) 0.2 % (0.0-2.0); EOSINOPHILS # (AUTO) 0.1 K/uL (0-0.4); EOSINOPHILS % (AUTO) 1.4 % (0.0-4.0); HEMATOCRIT 37.2 % (36-48); LYMPHOCYTES # (AUTO) 1.2 K/uL (2.5-16.5); LYMPHOCYTES % (AUTO) 31.6 % (20.5-51.1); MEAN CORPUSCULAR HEMOGLOBIN 27 pg (27-31); MEAN CORPUSCULAR HGB CONC 32 g/dL (33-37); MEAN CORPUSCULAR VOLUME 84.4 fL (80-94); MONOCYTES # (AUTO) 0.5 K/uL (0.8-1.0); MONOCYTES % (AUTO) 12.3 % (1.7-9.3); NEUTROPHILS # (AUTO) 2.1 K/uL (1.8-7.7); NEUTROPHILS % (AUTO) 54.5 % (42.2-75.2); PLATELET COUNT (AUTO) 150 K/uL (140-450); RED BLOOD CELL COUNT(AUTO) 4.41 MIL/uL (4.20-5.40); RED CELL DISTRIBUTION WIDTH 15.7 % (11.6-13.7); WHITE BLOOD COUNT (AUTO) 3.8 K/uL (4.8-10.8)
--- NOTE | 2018-11-13 07:25 | NUR ---
ENDORSED TO RN. PT STABLE CONDITION.
--- NOTE | 2018-11-13 07:30 | NUR ---
RECEIVED PT ON BED AAOX2-3, NO SOB NOTED, NO C/O PAIN AT THIS TIME. IV TO LT FOREARM PATENT AND INTACT. CHEST, DIMINISHED AIR ENTRY TO THE BASES, OTHERWISE CLEAR. ABDOMEN SOFT, BOWEL SOUNDS PRESENT. BED ON LOWEST POSITION, BED ALARM ON, CALL LIGHT WITHIN REACH. WILL REPOSITION PT EVERY 2 HRS. PT VERBALIZED UNDERSTANDING.
[2018-11-13 07:34] LABS: ALBUMIN 2.5 g/dL (3.4-5.0); ANION GAP 8.7 (8-16); ASPARTATE AMINOTRANSFERASE 88 U/L (15-37); CARBON DIOXIDE 28.6 mmol/L (21-32); CHLORIDE 106 mmol/L (98-107); CREATININE 0.8 mg/dL (0.6-1.3); GLUCOSE 84 mg/dL (74-106); POTASSIUM 3.3 mmol/L (3.5-5.1); SODIUM SERUM 140 mmol/L (136-145); TOTAL BILIRUBIN 0.6 mg/dL (0.0-1.0); UREA NITROGEN, BLOOD 14 mg/dL (7-18)
[2018-11-13 08:00] VITALS: BP 142/80
--- NOTE | 2018-11-13 08:21 | NUR ---
PATIENT HAS BEEN SCREENED AND CATEGORIZED MODERATE NUTRITION RISK. PATIENT WILL BE SEEN WITHIN 3-5 DAYS OF ADMISSION. 11/15/18[address]
[2018-11-13] MEDS ORDERED: DONEPEZIL HCL PO SCH (09:00)
[2018-11-13] MEDS ORDERED: MEMANTINE HCL PO SCH (09:00)
[2018-11-13] MEDS ORDERED: amLODIPine 5 MG TAB PO SCH (09:00)
--- NOTE | 2018-11-13 09:05 | NUR ---
DR. VILLEGAS MADE ROUNDS, NEW ORDER GIVEN.
[2018-11-13] MEDS ORDERED: AMIODARONE 200 MG TAB PO SCH (09:20)
[2018-11-13] MEDS: HYDRAGUARD CREAM TP SCH ×2 (09:41→21:06)
--- NOTE | 2018-11-13 11:00 | NUR ---
PT RESTING. NO SOB NOTED. NO SIGNS OF PAIN. DAUGHTER AYE AT THE BEDSIDE.
[2018-11-13 12:00] VITALS: BP 114/71
[2018-11-13] MEDS ORDERED: MIDODRINE 5 MG TAB PO SCH (13:00)
--- NOTE | 2018-11-13 13:00 | NUR ---
PT CONSUMED 25% OF FOOD SERVED FOR BREAKFAST AND LUNCH FED BY PT'S DAUGHTER AYE, PT TOLERATED WELL.
--- NOTE | 2018-11-13 14:00 | NUR ---
IVF NS FINISHED. Addendum: 11/23/18 at 1138 by Kyere Campoverde RN IVF STOPPED AT 1750
[2018-11-13] MEDS ORDERED: POTASSIUM CHLORIDE 10 MEQ TABER PO SCH (14:23)
[2018-11-13 16:00] VITALS: BP 128/76
--- NOTE | 2018-11-13 17:30 | NUR ---
PRODUCT COMMUNICATIONS MANAGER GOPI ON ROUNDS AND NOTIFIED WITH HOSPICE ORDER.
[2018-11-13] MEDS: MIDODRINE 5 MG TAB PO SCH (17:51)
--- NOTE | 2018-11-13 17:51 | NUR ---
IVF STARTED AND INFUSING WELL.
--- NOTE | 2018-11-13 18:10 | NUR ---
DAVID-NETWORK INFRASTRUCTURE ARCHITECT OF [facility] IS HERE TALKING TO FAMILY MEMBERS.
--- NOTE | 2018-11-13 19:00 | NUR ---
PT'S JERRI GRIFFITHS (DAUGHTER) SIGNED THE POLST AND HOSPICE PAPER WORKS. PER DAVID, PT WILL BE ON HOSPICE STARTING TOMORROW MORNING IF PT GETS ACCEPTED. [facility] CALLING CARD LEFT IN PT'S CARD.
--- NOTE | 2018-11-13 19:00 | NUR ---
PT'S JERRI GRIFFITHS (DAUGHTER) SIGNED THE POLST AND HOSPICE PAPER WORKS. PER DAVID, PT WILL BE ON HOSPICE STARTING . [facility] CALLING CARD LEFT IN PT'S CARD. Addendum: 11/14/18 at 0720 by Alejandrina Morocho RN INCOMPLETE NOTES. PLS DISREGARD ABOVE NOTES.
--- NOTE | 2018-11-13 19:24 | NUR ---
PT AWAKE, TALKING TO FAMILY MEMBERS AT THE BEDSIDE. NO SOB NOTED. NO COMPLAINTS MADE. ENDORSED TO NEXT SHIFT NURSE FOR CONTINUITY OF CARE.
--- NOTE | 2018-11-13 19:28 | NUR ---
RECEIVED FROM AM RN IN BED AWAKE AND ALERT. NO SOB AT THIS TIME. CARE PLANS FOR THE NIGHT DISCUSSED WITH PT. AND FAMILY MEMBERS VISITING. TELEMETRY MONITORING. CALL LIGHT WITH IN REACH. ENCOURAGED TO CALL FOR ANY HELP SHE MAY NEED. IVF SITE TO TO LEFT FOREARM INTACT AND NO INFILTRATION. DENIES PAIN. ON HOSPICE CARE . Addendum: 11/14/18 at 7862 by Taylor Brooks RN PT. ON EVALUATION FOR HOSPICE CARE .
--- NOTE | 2018-11-13 20:07 | NUR ---
PT. HAVING A BOWEL MOVEMENT AT THIS TIME. FAMILY AT BEDSIDE AND HELPING QUENCHER OPERATOR TO CLEAN HER UP. NO COMPLAINTS DONE.
[2018-11-13 20:45] VITALS: BP 126/72
[2018-11-13] MEDS: MIRTAZAPINE 15 MG TAB PO SCH (20:59)
[2018-11-13] MEDS: AMIODARONE 200 MG TAB PO SCH (21:00)
[2018-11-13] MEDS ORDERED: COMMUNICATION ORDER MC SCH (21:00)
[2018-11-13] MEDS: LORazepam 0.5 MG TAB PO PRN (21:00)
[2018-11-13] MEDS ORDERED: TRAVATAN 0.004% OP SCH (21:00)
[2018-11-13] MEDS ORDERED: EYE OP SCH (21:00)
[2018-11-13] MEDS ORDERED: METOPROLOL SUCCINATE 50 MG TABER PO SCH (21:00)
[2018-11-13] MEDS: TIMOLOL OP 0.5% 5 ML BTL OP SCH (21:01)
--- NOTE | 2018-11-13 21:06 | NUR ---
ALL P.O. MEDICATIONS SWALLOWED WELL. NO COMPLAINTS DONE. NIECE INHERE TO TAKE CARE OF PT. CALL LIGHT WITH IN REACH.
--- NOTE | 2018-11-13 23:00 | NUR ---
SLEEPING. NEEDS WILL BE ANTICIPATED AND WILL BE MET. TOTAL CARE. ON TELEMETRY MONITORING.
[2018-11-14 00:57] VITALS: BP 122/68
--- NOTE | 2018-11-14 01:16 | NUR ---
SLEEPING AT THIS TIME. GRAND DAUGHTER AT BEDSIDE WATCHING OVER PT. NO COMPLAINTS DONE. CALL LIGHT WITH IN REACH.
--- NOTE | 2018-11-14 02:00 | NUR ---
PT. TURNED TO SIDES Q 2H. TOTAL CARE. PILLOW SUPPORT TO PRESSURE AREAS. CALL LIGHT WITH IN REACH.
[2018-11-14 04:34] VITALS: BP 147/93
--- NOTE | 2018-11-14 05:27 | NUR ---
PT. SLEEPING WELL. WAKES UP EASILY WHEN TOUCHED. TURNED TO SIDES Q 2H BY CNAS. NEEDS ANTICIPATED AND MET.
--- NOTE | 2018-11-14 07:28 | NUR ---
ENDORSED TO THE NEXT RN FOR CONTINUITY OF CARE. AWAKE . BEDBOUND RT GENERALIZED WEAKNESS. GRAND DAUGHTER AT BEDSIDE. NO COMPLAINTS DONE. ALL NEEDS ANTICIPATED AND MET.
--- NOTE | 2018-11-14 07:30 | NUR ---
PT ON BED AAOX2-3, NO SOB NOTED, NO C/O PAIN AT THIS TIME. IV TO LT FOREARM PATENT AND INTACT. CHEST, DIMINISHED AIR ENTRY TO THE BASES, OTHERWISE CLEAR. ABDOMEN SOFT, BOWEL SOUNDS PRESENT. BED ON LOWEST POSITION, BED ALARM ON, CALL LIGHT WITHIN REACH. WILL REPOSITION PT EVERY 2 HRS. PT VERBALIZED UNDERSTANDING. GRAND DAUGHTER JOAN AT THE BEDSIDE VISITING.
[2018-11-14 08:00] VITALS: BP 142/85
[2018-11-14] MEDS: MIDODRINE 5 MG TAB PO SCH (08:52)
[2018-11-14] MEDS: TIMOLOL OP 0.5% 5 ML BTL OP SCH (08:52)
[2018-11-14] MEDS: AMIODARONE 200 MG TAB PO SCH (08:53)
[2018-11-14] MEDS: HYDRAGUARD CREAM TP SCH (09:34)
--- NOTE | 2018-11-14 09:40 | NUR ---
RECEIVED A CALL FROM DAVID, STATED PT IS ACCEPTED WITH [facility]. POSSIBLE CHOCOLATE PRODUCTION MACHINE OPERATOR TIME BETWEEN 12-1 PM, AWAITING FOR THE HOSPITAL BED DELIVERY TO PT'S RESIDENCE. DAVID WILL CALL BACK FOR THE NAME OF THE TRANSPORTATION AND IF THERE ARE CHANGES TO THE CHOCOLATE PRODUCTION MACHINE OPERATOR SCHEDULE.
--- NOTE | 2018-11-14 10:09 | NUR ---
RECEIVED A CALL FROM PT'S DAUGHTER AYE (#[phone]) THAT DAVID FROM [facility] INFORMED HER THAT THE DELIVERY MOTORCYCLE DRIVER TIME WILL BE BETWEEN 1-2 PM TODAY PENDING WITH THE HOSPITAL BED DELIVERY.
[2018-11-14 11:21] LABS: BASOPHILS % (AUTO) 0.4 % (0.0-2.0); EOSINOPHILS # (AUTO) 0.1 K/uL (0-0.4); EOSINOPHILS % (AUTO) 1.5 % (0.0-4.0); HEMATOCRIT 35.7 % (36-48); HEMOGLOBIN 11.4 g/dL (12.0-16.0); LYMPHOCYTES # (AUTO) 1.5 K/uL (2.5-16.5); LYMPHOCYTES % (AUTO) 32.7 % (20.5-51.1); MEAN CORPUSCULAR HEMOGLOBIN 27 pg (27-31); MEAN CORPUSCULAR HGB CONC 32 g/dL (33-37); MONOCYTES # (AUTO) 0.4 K/uL (0.8-1.0); MONOCYTES % (AUTO) 9.1 % (1.7-9.3); NEUTROPHILS # (AUTO) 2.5 K/uL (1.8-7.7); NEUTROPHILS % (AUTO) 56.3 % (42.2-75.2); PLATELET COUNT (AUTO) 158 K/uL (140-450); RED CELL DISTRIBUTION WIDTH 15.8 % (11.6-13.7); WHITE BLOOD COUNT (AUTO) 4.5 K/uL (4.8-10.8)
--- NOTE | 2018-11-14 11:30 | NUR ---
DAVID FROM [facility] CALLED STATED THAT [facility] WILL LINING STAMPER PT BETWEEN 1-2 PM, PT'S SON AT THE BEDSIDE NOTIFIED, VERBALIZED UNDERSTANDING. CALLED DR. JAMES, NEW ORDERS RECEIVED TORB.
[2018-11-14 11:40] LABS: ALBUMIN 2.5 g/dL (3.4-5.0); ANION GAP 12.4 (8-16); ASPARTATE AMINOTRANSFERASE 80 U/L (15-37); CARBON DIOXIDE 24.5 mmol/L (21-32); CHLORIDE 108 mmol/L (98-107); CREATININE 0.6 mg/dL (0.6-1.3); GLUCOSE 100 mg/dL (74-106); MAGNESIUM 1.9 mg/dL (1.8-2.4); POTASSIUM 3.9 mmol/L (3.5-5.1); SODIUM SERUM 141 mmol/L (136-145); TOTAL BILIRUBIN 0.5 mg/dL (0.0-1.0); UREA NITROGEN, BLOOD 8 mg/dL (7-18)
[2018-11-14 12:00] VITALS: BP 114/85
--- NOTE | 2018-11-14 12:15 | NUR ---
PT SEEN BY DR. JAMES AT THE BEDSIDE. DR. JAMES TALKED TO THE FAMILY AND STATED SHE WILL FOLLOW PT AT HER HOME WITH [facility]. PT AND FAMILY VERBALIZED UNDERSTANDING.
--- NOTE | 2018-11-14 13:50 | NUR ---
DISCHARGE PHOTO TAKEN AND DOCUMENTED.
--- NOTE | 2018-11-14 14:00 | NUR ---
DISCHARGE INSTRUCTIONS GIVEN TO PT'S DAUGHTER AYE AT THE BEDSIDE. VERBALIZED UNDERSTANDING. ARM BANDS AND IV REMOVED, CANNULA TIP INTACT.
--- NOTE | 2018-11-14 14:15 | NUR ---
PT IS PICKED UP BY [facility] IN STABLE CONDITION. NO COMPLAINTS MADE. NO SOB NOTED. PT IS DISCHARGED HOME WITH [facility].
== END 2018-11-14 14:15 | disposition hospice, home (50) ==
LOC: MED 11:43 → INTOOBSV 14:05 → MTU 14:05
PROVIDERS: ADMIT Internal Medicine Geriatric Medicine; ATTEND Internal Medicine Geriatric Medicine
DX: R55 Syncope and collapse (principal); I10 Essential (primary) hypertension; E78.5 Hyperlipidemia, unspecified; I48.2 Chronic atrial fibrillation; E46 Unspecified protein-calorie malnutrition; I08.1 Rheumatic disorders of both mitral and tricuspid valves; Z85.3 Personal history of malignant neoplasm of breast; Z95.0 Presence of cardiac pacemaker; Z09 Encounter for follow-up examination after completed treatment for conditions other than malignant neoplasm
CPT/HCPCS: 36415; 70450; 71045; 80053; 80305; 81001; 82948; 83605; 83735; 83880; 84484; 85025; 85610; 85730; 87040; 87081; 87086; 93005; 96360; 96361; 99285; G0378; G0480; J7030; Q0092